=== PATIENT | female | born 1980 | race Caucasian/White ===

== ENCOUNTER → 2017-03-03 | Outpatient (CLI) | payer OTHER ==
[~2017-03-03] MED LIST: ALBU17IN INH; BELVIQ PO; BIOTIN PO; BREO1INH INH; BRIN10TA PO; CAMRTAB PO; CLAR1TAB2 PO; MAGN250T7 PO; MAXALT PO; OMEG100011 PO; OXYC1TAB23 PO; SING10TA32 PO; SYNT25TA PO; TOPA25TA PO; ULTR37.539 PO; VALT500T PO; WELL150T PO; XANA0.25 PO; ZONI100C2 PO; ZONI25CA2 PO
[2017-03-03 08:25] LABS: BASO % 0.7 % (0.0-1.0); EOS # 0.1 10^3/uL (0.0-0.50); LYMPH # 2.1 10^3/uL (1.5-4.5); LYMPH % 51.1 % (24.0-44.0); MEAN CORPUSCULAR HGB CONC 33.3 g/dl (32.0-36.5); MONO # 0.5 10^3/uL (0.0-0.8); MONO % 12.2 % (0.0-5.0); NEUTROPHILS # 1.4 10^3/uL (1.8-7.7); PLATELET COUNT, AUTOMATED 309 10^3/uL (150-450); RED CELL DISTRIBUTION WIDTH 12.4 % (11.5-14.5)
[2017-03-03 08:41] LABS: ADD MANUAL DIFFER NO; DIFF SLIDE NUMBER 118
[2017-03-03 08:53] LABS: ALBUMIN 3.6 GM/DL (3.2-5.2); ALKALINE PHOSPHATASE 68 U/L (45-117); ALT/SGPT 50 U/L (12-78); ANION GAP 10 MEQ/L (8-16); AST/SGOT 26 U/L (15-37); BILIRUBIN,TOTAL 0.5 MG/DL (0.2-1.0); BLOOD UREA NITROGEN 7 MG/DL (7-18); CARBON DIOXIDE LEVEL 27 MEQ/L (21-32); CHLORIDE LEVEL 104 MEQ/L (98-107); CREATININE FOR GFR 0.64 MG/DL (0.55-1.02); FERRITIN 161 NG/ML (8-252); GLOMERULAR FILTRATION RATE > 60.0 (>60); GLUCOSE, FASTING 76 MG/DL (70-105); MAGNESIUM LEVEL 1.9 MG/DL (1.8-2.4); PERCENT SATURATION 24.1 % (13.2-45.0); PHOSPHORUS LEVEL 3.9 MG/DL (2.5-4.9); POTASSIUM SERUM 3.8 MEQ/L (3.5-5.1); SODIUM LEVEL 141 MEQ/L (136-145); TOTAL IRON BINDING CAPACITY 224 UG/DL (250-450); TOTAL PROTEIN 6.6 GM/DL (6.4-8.2)
[2017-03-03 09:27] LABS: VITAMIN B12 LEVEL 1616 PG/ML (247-911)
[2017-03-05 12:24] LABS: PRETREATED FOLATE FOR RBCFOL 16.1 NG/ML
== END ==
LOC: M LAB 07:11
PROVIDERS: ATTEND Surgery
DX: K91.2 Postsurgical malabsorption, not elsewhere classified (principal); Z98.84 Bariatric surgery status

== ENCOUNTER → 2017-05-26 | Outpatient (CLI) | payer OTHER ==
[2017-05-26 08:52] LABS: BASO % 0.6 % (0.0-1.0); EOS # 0.1 10^3/uL (0.0-0.50); EOS % 1.5 % (0.0-3.0); IMMATURE GRANULOCYTE % 0.2 % (0-0); LYMPH # 2.7 10^3/uL (1.5-4.5); LYMPH % 51.2 % (24.0-44.0); MEAN CORPUSCULAR HEMOGLOBIN 27.7 pg (27.0-33.0); MEAN CORPUSCULAR HGB CONC 32.8 g/dl (32.0-36.5); MEAN CORPUSCULAR VOLUME 84.3 fl (80.0-96.0); MONO # 0.4 10^3/uL (0.0-0.8); MONO % 8.1 % (0.0-5.0); NEUTROPHILS % 38.4 % (36.0-66.0); PLATELET COUNT, AUTOMATED 242 10^3/uL (150-450); RED CELL DISTRIBUTION WIDTH 12.3 % (11.5-14.5); WHITE BLOOD COUNT 5.2 10^3/uL (4.0-10.0)
[2017-05-26 09:17] LABS: ALBUMIN 3.6 GM/DL (3.2-5.2); ALBUMIN/GLOBULIN RATIO 1.29 (1.00-1.93); ALKALINE PHOSPHATASE 58 U/L (45-117); ALT/SGPT 16 U/L (12-78); ANION GAP 5 MEQ/L (8-16); AST/SGOT 11 U/L (7-37); BILIRUBIN,TOTAL 0.5 MG/DL (0.2-1.0); BLOOD UREA NITROGEN 11 MG/DL (7-18); CALCIUM LEVEL 8.6 MG/DL (8.5-10.1); CARBON DIOXIDE LEVEL 29 MEQ/L (21-32); CHLORIDE LEVEL 107 MEQ/L (98-107); CREATININE FOR GFR 0.56 MG/DL (0.55-1.02); FERRITIN 122 NG/ML (8-252); GLOMERULAR FILTRATION RATE > 60.0 (>60); GLUCOSE, FASTING 89 MG/DL (70-105); MAGNESIUM LEVEL 2.1 MG/DL (1.8-2.4); PHOSPHORUS LEVEL 3.8 MG/DL (2.5-4.9); POTASSIUM SERUM 4.2 MEQ/L (3.5-5.1); SODIUM LEVEL 141 MEQ/L (136-145); TOTAL PROTEIN 6.4 GM/DL (6.4-8.2)
[2017-05-26 09:53] LABS: VITAMIN B12 LEVEL 366 PG/ML (247-911)
[2017-05-26 10:01] LABS: ESTIMATED AVERAGE GLUCOSE 100 MG/DL (60-110)
[2017-05-28 11:02] LABS: PRETREATED FOLATE FOR RBCFOL 16.1 NG/ML
== END ==
LOC: M LAB 08:01
DX: K91.2 Postsurgical malabsorption, not elsewhere classified (principal)
CPT/HCPCS: 83540

== ENCOUNTER → 2017-11-22 | Outpatient (CLI) | payer OTHER ==
[2017-11-22 16:46] LABS: BASO # 0.1 10^3/uL (0.0-0.2); BASO % 0.6 % (0.0-1.0); EOS # 0.2 10^3/uL (0.0-0.50); EOS % 2.8 % (0.0-3.0); HEMATOCRIT 39.3 % (36.0-47.0); HEMOGLOBIN 13.3 g/dl (12.0-15.5); IMMATURE GRANULOCYTE % 0.3 % (0-3.0); LYMPH # 3.5 10^3/uL (1.5-4.5); LYMPH % 43.8 % (24.0-44.0); MEAN CORPUSCULAR HEMOGLOBIN 28.7 pg (27.0-33.0); MEAN CORPUSCULAR HGB CONC 33.8 g/dl (32.0-36.5); MEAN CORPUSCULAR VOLUME 84.9 fl (80.0-96.0); MONO # 0.7 10^3/uL (0.0-0.8); MONO % 8.3 % (0.0-5.0); NEUTROPHILS # 3.5 10^3/uL (1.8-7.7); NEUTROPHILS % 44.2 % (36.0-66.0); PLATELET COUNT, AUTOMATED 242 10^3/uL (150-450); RED BLOOD COUNT 4.63 10^6/uL (4.00-5.40); RED CELL DISTRIBUTION WIDTH 12.1 % (11.5-14.5); WHITE BLOOD COUNT 7.9 10^3/uL (4.0-10.0)
[2017-11-22 16:56] LABS: ESTIMATED AVERAGE GLUCOSE 105 MG/DL (60-110); HEMOGLOBIN A1c 5.3 %
[2017-11-22 17:10] LABS: TOTAL 25(OH) VITAMIN D 27.3 NG/ML (30.0-100.0); VITAMIN B12 LEVEL 699 PG/ML (247-911)
[2017-11-22 17:12] LABS: ALBUMIN 3.7 GM/DL (3.2-5.2); ALBUMIN/GLOBULIN RATIO 1.19 (1.00-1.93); ALKALINE PHOSPHATASE 71 U/L (45-117); ALT/SGPT 20 U/L (12-78); ANION GAP 7 MEQ/L (8-16); AST/SGOT 11 U/L (7-37); BILIRUBIN,TOTAL 0.3 MG/DL (0.2-1.0); BLOOD UREA NITROGEN 17 MG/DL (7-18); CALCIUM LEVEL 8.9 MG/DL (8.5-10.1); CARBON DIOXIDE LEVEL 28 MEQ/L (21-32); CHLORIDE LEVEL 108 MEQ/L (98-107); CREATININE FOR GFR 0.59 MG/DL (0.55-1.30); FERRITIN 100 NG/ML (8-252); GLOMERULAR FILTRATION RATE > 60.0 (>60); GLUCOSE, FASTING 77 MG/DL (70-100); IRON (FE) 76 UG/DL (50-170); MAGNESIUM LEVEL 1.9 MG/DL (1.8-2.4); PERCENT SATURATION 29.2 % (13.2-45.0); PHOSPHORUS LEVEL 3.5 MG/DL (2.5-4.9); POTASSIUM SERUM 4.4 MEQ/L (3.5-5.1); SODIUM LEVEL 143 MEQ/L (136-145); TOTAL IRON BINDING CAPACITY 260 UG/DL (250-450); TOTAL PROTEIN 6.8 GM/DL (6.4-8.2)
[2017-11-22 19:50] LABS: HEMATOCRIT 39.3 % (36.0-47.0)
[2017-11-23 10:15] LABS: PRETREATED FOLATE FOR RBCFOL 15.5 NG/ML; RBC FOLATE 828.2 NG/ML (280-791)
== END ==
LOC: M LAB 16:00
DX: E55.9 Vitamin D deficiency, unspecified (principal)
CPT/HCPCS: 83550

== ENCOUNTER → 2017-12-23 | Outpatient (CLI) | payer OTHER ==
[2017-12-23 13:41] LABS: BASO # 0.1 10^3/uL (0.0-0.2); BASO % 0.7 % (0.0-1.0); EOS # 0.2 10^3/uL (0.0-0.50); EOS % 2.3 % (0.0-3.0); HEMATOCRIT 44.9 % (36.0-47.0); HEMOGLOBIN 14.8 g/dl (12.0-15.5); IMMATURE GRANULOCYTE % 0.1 % (0-3.0); MEAN CORPUSCULAR HEMOGLOBIN 28.1 pg (27.0-33.0); MEAN CORPUSCULAR VOLUME 85.4 fl (80.0-96.0); MONO # 0.4 10^3/uL (0.0-0.8); MONO % 5.5 % (0.0-5.0); NEUTROPHILS # 3.3 10^3/uL (1.8-7.7); NEUTROPHILS % 47.4 % (36.0-66.0); PLATELET COUNT, AUTOMATED 244 10^3/uL (150-450); RED BLOOD COUNT 5.26 10^6/uL (4.00-5.40); RED CELL DISTRIBUTION WIDTH 12.4 % (11.5-14.5); WHITE BLOOD COUNT 6.9 10^3/uL (4.0-10.0)
[2017-12-23 14:40] LABS: ALBUMIN/GLOBULIN RATIO 1.14 (1.00-1.93); ALKALINE PHOSPHATASE 70 U/L (45-117); ALT/SGPT 22 U/L (12-78); ANION GAP 6 MEQ/L (8-16); AST/SGOT 12 U/L (7-37); BILIRUBIN,TOTAL 0.6 MG/DL (0.2-1.0); BLOOD UREA NITROGEN 17 MG/DL (7-18); CALCIUM LEVEL 9.4 MG/DL (8.5-10.1); CARBON DIOXIDE LEVEL 31 MEQ/L (21-32); CHLORIDE LEVEL 105 MEQ/L (98-107); CREATININE FOR GFR 0.81 MG/DL (0.55-1.30); GLOMERULAR FILTRATION RATE > 60.0 (>60); GLUCOSE, FASTING 78 MG/DL (70-100); POTASSIUM SERUM 4.4 MEQ/L (3.5-5.1); SODIUM LEVEL 142 MEQ/L (136-145); TOTAL PROTEIN 7.5 GM/DL (6.4-8.2)
[2017-12-23 14:41] LABS: TESTOSTERONE 14 NG/DL (14-76)
[2017-12-24 09:39] LABS: DEHYDROEPIANDROSTERONE SULFATE 114.6 ug/dL (57.3-279.2)
== END ==
LOC: M LAB 13:00
DX: L00-L99 Diseases of the skin and subcutaneous tissue (principal)
CPT/HCPCS: 84403

== ENCOUNTER → 2018-09-20 | Outpatient (CLI) | payer OTHER ==
--- NOTE | 2018-09-20 17:28 | REP ---
REASON FOR EXAM: Abdominal pain. COMPARISON: None. FINDINGS: KUB shows the intestinal gas pattern to be nonspecific. The organ silhouettes insofar as delineated are unremarkable. There is no evidence of free intraperitoneal air. IMPRESSION: Nonspecific. Electronically Signed by Gurwinder King DO 09/21/2018 11:55 A
== END ==
LOC: M RAD 14:39
PROVIDERS: ATTEND Physician Assistant
DX: R10.9 Unspecified abdominal pain (principal); R14.0 Abdominal distension (gaseous)

== ENCOUNTER → 2018-11-30 | Outpatient (CLI) | payer OTHER ==
[2018-11-30 16:21] LABS: BASO # 0.1 10^3/uL (0.0-0.2); BASO % 0.7 % (0.0-1.0); EOS # 0.3 10^3/uL (0.0-0.50); EOS % 4.7 % (0.0-3.0); HEMATOCRIT 39.7 % (36.0-47.0); HEMOGLOBIN 13.1 g/dl (12.0-15.5); LYMPH % 41.2 % (24.0-44.0); MEAN CORPUSCULAR HEMOGLOBIN 28.4 pg (27.0-33.0); MEAN CORPUSCULAR VOLUME 86.1 fl (80.0-96.0); MONO # 0.5 10^3/uL (0.0-0.8); MONO % 6.7 % (0.0-5.0); NEUTROPHILS # 3.4 10^3/uL (1.8-7.7); NEUTROPHILS % 46.4 % (36.0-66.0); PLATELET COUNT, AUTOMATED 233 10^3/uL (150-450); RED BLOOD COUNT 4.61 10^6/uL (4.00-5.40); WHITE BLOOD COUNT 7.3 10^3/uL (4.0-10.0)
[2018-11-30 16:26] LABS: HEMATOCRIT 39.7 % (36.0-47.0)
[2018-11-30 16:41] LABS: HEMOGLOBIN A1c 5.3 %
[2018-11-30 16:47] LABS: ALBUMIN 3.9 GM/DL (3.2-5.2); ALT/SGPT 22 U/L (12-78); BILIRUBIN,TOTAL 0.5 MG/DL (0.2-1.0); BLOOD UREA NITROGEN 14 MG/DL (7-18); CALCIUM LEVEL 9.4 MG/DL (8.5-10.1); CARBON DIOXIDE LEVEL 30 MEQ/L (21-32); CHLORIDE LEVEL 103 MEQ/L (98-107); CREATININE FOR GFR 0.76 MG/DL (0.55-1.30); FERRITIN 157 NG/ML (8-252); GLOMERULAR FILTRATION RATE > 60.0 (>60); GLUCOSE, FASTING 89 MG/DL (70-100); IRON (FE) 121 UG/DL (50-170); PERCENT SATURATION 44.8 % (13.2-45.0); PHOSPHORUS LEVEL 3.6 MG/DL (2.5-4.9); POTASSIUM SERUM 4.1 MEQ/L (3.5-5.1); SODIUM LEVEL 140 MEQ/L (136-145); TOTAL IRON BINDING CAPACITY 270 UG/DL (250-450); TOTAL PROTEIN 6.9 GM/DL (6.4-8.2)
[2018-11-30 20:05] LABS: VITAMIN B12 LEVEL 1003 PG/ML (247-911)
== END ==
LOC: M LAB 15:24
PROVIDERS: ATTEND Physician Assistant
DX: K91.2 Postsurgical malabsorption, not elsewhere classified (principal); Z98.84 Bariatric surgery status; E55.9 Vitamin D deficiency, unspecified

== ENCOUNTER → 2018-11-30 | Outpatient (CLI) | payer OTHER ==
[2018-11-30 08:46] LABS: BASO # 0.1 10^3/uL (0.0-0.2); BASO % 0.9 % (0.0-1.0); EOS # 0.5 10^3/uL (0.0-0.50); EOS % 8.2 % (0.0-3.0); HEMATOCRIT 41.4 % (36.0-47.0); HEMOGLOBIN 13.6 g/dl (12.0-15.5); LYMPH # 2.7 10^3/uL (1.5-4.5); LYMPH % 47.6 % (24.0-44.0); MEAN CORPUSCULAR HEMOGLOBIN 29.4 pg (27.0-33.0); MEAN CORPUSCULAR HGB CONC 32.9 g/dl (32.0-36.5); MEAN CORPUSCULAR VOLUME 89.4 fl (80.0-96.0); MONO # 0.4 10^3/uL (0.0-0.8); MONO % 6.6 % (0.0-5.0); NEUTROPHILS % 36.3 % (36.0-66.0); PLATELET COUNT, AUTOMATED 225 10^3/uL (150-450); RED BLOOD COUNT 4.63 10^6/uL (4.00-5.40); WHITE BLOOD COUNT 5.6 10^3/uL (4.0-10.0)
[2018-11-30 09:03] LABS: ALBUMIN 3.6 GM/DL (3.2-5.2); ALT/SGPT 21 U/L (12-78); BILIRUBIN,DIRECT 0.2 MG/DL (0.0-0.2); BILIRUBIN,TOTAL 0.7 MG/DL (0.2-1.0); IRON (FE) 146 UG/DL (50-170); PERCENT SATURATION 55.3 % (13.2-45.0); TOTAL IRON BINDING CAPACITY 264 UG/DL (250-450); TOTAL PROTEIN 6.8 GM/DL (6.4-8.2)
[2018-11-30 09:53] LABS: VITAMIN B12 LEVEL 851 PG/ML
[2018-11-30 11:04] LABS: FOLATE > 24.0 NG/ML
[2018-12-02 15:45] LABS: TISSUE TRANSGLUTAMINASE IgA <2 U/mL (0-3); UNITSIGA FOR GLIADIN IGA 4 units (0-19); UNITSIGG FOR GLIADIN IGG 2 units (0-19)
== END ==
LOC: M LAB 07:48
PROVIDERS: ATTEND Internal Medicine Gastroenterology
DX: R10.10 Upper abdominal pain, unspecified (principal)

== ENCOUNTER → 2018-12-06 | Outpatient (CLI) | payer OTHER ==
--- NOTE | 2018-12-06 10:03 | REP ---
Clinical: Abdominal pain with nausea. Technique: Real time bowman scale ultrasound examination using curved array transducer. Findings: Liver, spleen, and pancreas are normal in contour, size, echogenicity without focal hepatic, pancreatic, or splenic lesion identified. Splenic index equals 460. Liver measures 16.5 cm in craniocaudal length. The gallbladder demonstrates multiple mobile gallstones without wall thickening or pericholecystic fluid to suggest acute cholecystitis. No intrahepatic biliary ductal dilatation is appreciated. The common bile duct is upper limits of normal at 6.8 mm diameter. The bilateral kidneys are normal in reniform shape and appearance without hydronephrosis. Right kidney measures 11.7 x 6.2 x 5.6 cm. Left kidney measures 10.5 x 6.3 x 5.4 cm. Abdominal aorta appears normal. No ascites. Impression: 1. Cholelithiasis without sonographic evidence for acute cholecystitis. Electronically Signed by Nash Zee MD 12/06/2018 09:56 A
== END ==
LOC: M RAD 06:38
PROVIDERS: ATTEND Internal Medicine Gastroenterology
DX: R10.10 Upper abdominal pain, unspecified (principal)

== ENCOUNTER 2018-12-30 09:01 | Day surgery (SDC) | payer OTHER ==
[~2018-12-30] VITALS: Ht 154.9 cm; Wt 71.2 kg
[~2018-12-30 09:01] MED LIST changes: +ALIG4CAP PO; +D32000CA PO; +HAIR1CHW PO; +MULTCAP PO; +OMEP1CAP73 PO; +SPIR50TA4 PO; +VENTAER INH; +VITA500T41 PO; +ZONI100C17 PO; -ZONI100C2 PO; +ZONI25CA13 PO; -ZONI25CA2 PO
[2018-12-30] MEDS ORDERED: NS 1,000 ML IV ONE (09:30)
[2018-12-30] MEDS ORDERED: LIDOCAINE 2% INJ 100 MG/5 ML SDV (FOR ANES.) As Ordered ONE ×2 (10:16→11:10)
[2018-12-30] MEDS ORDERED: propofoL 200 MG/20 ML VIAL As Ordered ONE ×2 (10:16→10:17)
--- NOTE | 2018-12-30 11:51 | ROOR ---
Patient Name: Lauryn Cummins Procedure Date: 12/30/2018 10:53 AM Date of : 1980 Age: 38 Room: [facility] Gender: Female Note Status: Finalized Procedure: Upper GI endoscopy Indications: Dyspepsia Providers: Derek Kelly MD Referring MD: MELANY DENENY NP Requesting Provider: Medicines: Monitored Anesthesia Care Complications: No immediate complications. Procedure: Pre-Anesthesia Assessment: - Prior to the procedure, a History and Physical was performed, and patient medications and allergies were reviewed. The patient is competent. The risks and benefits of the procedure and the sedation options and risks were discussed with the patient. All questions were answered and informed consent was obtained. Patient identification and proposed procedure were verified by the physician, the nurse and the anesthesiologist in the procedure room. Mental Status Examination: alert and oriented. Airway Examination: normal oropharyngeal airway and neck mobility. Respiratory Examination: clear to auscultation. CV Examination: normal. Prophylactic Antibiotics: The patient does not require prophylactic antibiotics. Prior Anticoagulants: The patient has taken no previous anticoagulant or antiplatelet agents. ASA Grade Assessment: II - A patient with mild systemic disease. After reviewing the risks and benefits, the patient was deemed in satisfactory condition to undergo the procedure. The anesthesia plan was to use monitored anesthesia care (MAC). Immediately prior to administration of medications, the patient was re-assessed for adequacy to receive sedatives. The heart rate, respiratory rate, oxygen saturations, blood pressure, adequacy of pulmonary ventilation, and response to care were monitored throughout the procedure. The physical status of the patient was re-assessed after the procedure. The Endoscope was introduced through the mouth, and advanced to the second part of duodenum. The upper GI endoscopy was accomplished without difficulty. The patient tolerated the procedure well. Findings: The Z-line was regular and was found 36 cm from the incisors. Mucosal changes including feline appearance, longitudinal furrows and white plaques were found in the entire esophagus. Biopsies were obtained from the proximal and distal esophagus with cold forceps for histology of suspected eosinophilic esophagitis. Verification of patient identification for the specimen was done by the physician and nurse using the patient's name, date and medical record number. Estimated blood loss was minimal. Evidence of a sleeve gastrectomy was found in the gastric fundus, in the gastric body and in the gastric antrum. This was characterized by healthy appearing mucosa. Scattered mild inflammation characterized by congestion (edema), erythema and granularity was found in the gastric antrum. Biopsies were taken with a cold forceps for Helicobacter pylori testing. The duodenal bulb and second portion of the duodenum were normal. Biopsies for histology were taken with a cold forceps for evaluation of celiac disease. Impression: - Z-line regular, 36 cm from the incisors. - Esophageal mucosal changes suspicious for eosinophilic esophagitis. Biopsied. - A sleeve gastrectomy was found, characterized by healthy appearing mucosa. - Gastritis. Biopsied. - Normal duodenal bulb and second portion of the duodenum. Biopsied. Recommendation: - Patient has a contact number available for emergencies. The signs and symptoms of potential delayed complications were discussed with the patient. Return to normal activities tomorrow. Written discharge instructions were provided to the patient. - High fiber diet. - Continue present medications. - Await pathology results. - Telephone GI clinic for pathology results in 2 weeks. - Return to primary care physician. Derek Kelly MD Derke Kelly MD 12/30/2018 11:51:03 AM Electronically signed by Derek Kelly MD Number of Addenda: 0 Note Initiated On: 12/30/2018 10:53 AM Estimated Blood Loss: Estimated blood loss was minimal.
--- NOTE | 2018-12-30 11:55 | ROOR ---
Patient Name: Lauryn Cummins Procedure Date: 12/30/2018 10:54 AM Date of : 1980 Age: 38 Room: [facility] Gender: Female Note Status: Finalized Procedure: Colonoscopy Indications: Change in bowel habits, Constipation Providers: Derek Kelly MD Referring MD: MELANY DENNEY NP Requesting Provider: Medicines: Monitored Anesthesia Care Complications: No immediate complications. Procedure: Pre-Anesthesia Assessment: - Prior to the procedure, a History and Physical was performed, and patient medications and allergies were reviewed. The patient is competent. The risks and benefits of the procedure and the sedation options and risks were discussed with the patient. All questions were answered and informed consent was obtained. Patient identification and proposed procedure were verified by the physician, the nurse and the anesthesiologist in the procedure room. Mental Status Examination: alert and oriented. Airway Examination: normal oropharyngeal airway and neck mobility. Respiratory Examination: clear to auscultation. CV Examination: normal. Prophylactic Antibiotics: The patient does not require prophylactic antibiotics. Prior Anticoagulants: The patient has taken no previous anticoagulant or antiplatelet agents. ASA Grade Assessment: II - A patient with mild systemic disease. After reviewing the risks and benefits, the patient was deemed in satisfactory condition to undergo the procedure. The anesthesia plan was to use monitored anesthesia care (MAC). Immediately prior to administration of medications, the patient was re-assessed for adequacy to receive sedatives. The heart rate, respiratory rate, oxygen saturations, blood pressure, adequacy of pulmonary ventilation, and response to care were monitored throughout the procedure. The physical status of the patient was re-assessed after the procedure. The Colonoscope was introduced through the anus and advanced to the terminal ileum, with identification of the appendiceal orifice and IC valve. The colonoscopy was performed without difficulty. The patient tolerated the procedure well. The quality of the bowel preparation was good. The terminal ileum, ileocecal valve, appendiceal orifice, and rectum were photographed. Scope insertion time was 3 minutes. Scope withdrawal time was 11 minutes. The total duration of the procedure was 14 minutes. Findings: The perianal and digital rectal examinations were normal. The terminal ileum appeared normal. A 4 mm polyp was found in the transverse colon. The polyp was sessile. The polyp was removed with a cold biopsy forceps. Resection and retrieval were complete. Verification of patient identification for the specimen was done by the physician and nurse using the patient's name, date and medical record number. Estimated blood loss was minimal. Three sessile polyps were found in the descending colon. The polyps were 5 to 8 mm in size. These polyps were removed with a cold biopsy forceps. Resection and retrieval were complete. Multiple small and large-mouthed diverticula were found in the sigmoid colon and descending colon. There was no evidence of diverticular bleeding. Non-bleeding external and internal hemorrhoids were found during retroflexion. The hemorrhoids were small. Impression: - The examined portion of the ileum was normal. - One 4 mm polyp in the transverse colon, removed with a cold biopsy forceps. Resected and retrieved. - Three 5 to 8 mm polyps in the descending colon, removed with a cold biopsy forceps. Resected and retrieved. - Moderate diverticulosis in the sigmoid colon and in the descending colon. There was no evidence of diverticular bleeding. - Non-bleeding external and internal hemorrhoids. Recommendation: - Patient has a contact number available for emergencies. The signs and symptoms of potential delayed complications were discussed with the patient. Return to normal activities tomorrow. Written discharge instructions were provided to the patient. - High fiber diet. - Continue present medications. - Await pathology results. - Repeat colonoscopy in 5-10 years for surveillance based on pathology results. - Telephone GI clinic for pathology results in 2 weeks. - Return to primary care physician. Derek Kelly MD Derek Kelly MD 12/30/2018 11:54:41 AM Electronically signed by Derek Kelly MD Number of Addenda: 0 Note Initiated On: 12/30/2018 10:54 AM Estimated Blood Loss: Estimated blood loss was minimal.
[2018-12-30 12:00] VITALS: BP 109/66
[2019-02-16] MEDS ORDERED: PROT1TAB2 PO (13:42)
[2019-02-16] MEDS ORDERED: DOCU100C16 PO (13:42)
== END 2018-12-30 12:10 | disposition home or self-care (01) ==
LOC: M OPP 09:01
PROVIDERS: ATTEND Internal Medicine Gastroenterology
DX: D12.3 Benign neoplasm of transverse colon (principal); D12.4 Benign neoplasm of descending colon; K57.30 Diverticulosis of large intestine without perforation or abscess without bleeding; K64.8 Other hemorrhoids; K29.70 Gastritis, unspecified, without bleeding; K22.8 Other specified diseases of esophagus; R19.4 Change in bowel habit; K59.00 Constipation, unspecified; R10.13 Epigastric pain; Z98.84 Bariatric surgery status

== ENCOUNTER → 2019-01-18 | Outpatient (CLI) | payer OTHER ==
[~2019-01-18] MED LIST changes: +GASTROGRAFIN SOLUTION 30ML (Q9963) As Ordered ONE; +ISOVUE-370 76% 100ML VIAL (Q9967) As Ordered ONE; -OMEP1CAP73 PO; +OMEP20CA4 PO; -ZONI100C17 PO; +ZONI100C2 PO; -ZONI25CA13 PO; +ZONI25CA2 PO
--- NOTE | 2019-01-18 19:18 | REP ---
HISTORY: Left lower quadrant tenderness. COMPARISON: None. CONTRAST: 100 mL [id number] The lung bases are clear. In the posterior segment of the right lobe of the liver, there is a heterogeneously enhancing 1.6 cm sized hepatic lesion. The gallbladder, spleen, pancreas, adrenal glands and kidneys are within normal limits. The abdominal aorta and paraaortic regions are within normal limits. The bowel loops and their mesenteries are within normal limits. There is no evidence of free fluid or free air. CT PELVIS: In the superior left anterior hemipelvis there is a 2.6 cm sized low density structure, which has an additional wall enhancing smaller 1.5 cm sized low density structure. There is no free pelvic fluid or air. Bone window technique throughout the examination shows the osseous structures to be within normal limits. IMPRESSION: 1. Abnormal enhancing hepatic lesion as described above of uncertain etiology. Pre- and post gadolinium enhanced MRI is recommended for further evaluation. 2. In the left lower quadrant there is a low density structure with an additional smaller ring enhancing structure as described above. This has the appearance of a left ovary with a decompressing follicle. I have been given information that the patient is status post hysterectomy, however, I have been given no information as to whether or not the patient's is status post oophorectomy. If the patient is status post oophorectomy, then the finding represents something other than the finding involving an ovary. This needs to be correlated clinically with appropriate followup. 3. Other findings as described above. Electronically Signed by Gurwinder King DO 01/19/2019 10:53 A
== END ==
LOC: M RAD 14:02
PROVIDERS: ATTEND Surgery
DX: R10.814 Left lower quadrant abdominal tenderness (principal)
CPT/HCPCS: 74177; Q9963; Q9967

== ENCOUNTER → 2019-01-18 | Outpatient (CLI) | payer OTHER ==
[~2019-01-18] MED LIST changes: -GASTROGRAFIN SOLUTION 30ML (Q9963) As Ordered ONE; -ISOVUE-370 76% 100ML VIAL (Q9967) As Ordered ONE
--- NOTE | 2019-01-19 08:39 | REP ---
BILATERAL SCREENING DIGITAL MAMMOGRAM WITH 3D TOMOSYNTHESIS: There are no palpable abnormalities or other breast complaints. The the patient states she had a clinical breast examination Sep, 2018. The Tyrer Cuzick Score is: 16.1% . There are no comparisons, the study is a baseline study. The breasts are heterogeneously dense, which could obscure small masses. There is no dominant mass, micro calcific cluster or architectural distortion that would indicate malignancy. There are no additional findings on 3D tomosynthesiss. Impression: BIRADS/ACR category 1 mammogram. Negative. Recommendation: Routine annual screening mammography. Because of the increased breast density, annual adjunctive breast MRI in addition to screening mammography is recommended. These can be performed at alternating six month intervals. This mammogram was interpreted with the aid of a FDA approved computer-aided detection system. A. Negative mammogram reports should not delay biopsy if a dominant or clinically suspicious mass is present. B. Not all breast cancers are identified by mammography or tomosynthesis. C. Adenosis and dense breasts may obscure an underlying neoplasm. Patient letter M1 dense breasts. Electronically Signed by Mark Cerna MD 01/19/2019 08:30 A
== END ==
LOC: M RAD 13:55
PROVIDERS: ATTEND Plastic Surgery Surgery of the Hand
DX: N64.81 Ptosis of breast (principal)

== ENCOUNTER → 2019-02-08 | Outpatient (CLI) | payer OTHER ==
[~2019-02-08] MED LIST changes: +DOCU100C16 PO; +PROT1TAB2 PO
[2019-02-08 13:19] LABS: ALBUMIN 3.8 GM/DL (3.2-5.2); ALT/SGPT 25 U/L (12-78); BILIRUBIN,DIRECT 0.2 MG/DL (0.0-0.2); BILIRUBIN,TOTAL 0.5 MG/DL (0.2-1.0); TOTAL PROTEIN 6.9 GM/DL (6.4-8.2)
[2019-02-08 13:24] LABS: HEPATITIS B SURFACE ANTIBODY NEGATIVE (POSITIVE)
[2019-02-08 13:34] LABS: HEPATITIS B SURFACE ANTIGEN NEGATIVE (NEGATIVE)
== END ==
LOC: M LAB 11:50
PROVIDERS: ATTEND Internal Medicine Gastroenterology
DX: R93.3 Abnormal findings on diagnostic imaging of other parts of digestive tract (principal)

== ENCOUNTER 2019-02-28 07:53 | Observation (INO) | payer OTHER ==
[2019-02-28] VITALS (8 sets, daily range): BP systolic 84–110; BP diastolic 50–72
[~2019-02-28] VITALS: Ht 154.9 cm; Wt 73.9 kg
[~2019-02-28 07:53] MED LIST changes: +LR 1,000 ML IV ONE; +OMEP1CAP73 PO; -OMEP20CA4 PO; +ZONI100C17 PO; -ZONI100C2 PO; +ZONI25CA13 PO; -ZONI25CA2 PO; +ceFAZolin SOD 1 GM in D5W MINI-BAG PLUS 50 ML IV ONE
[2019-02-28] MEDS ORDERED: propofoL 200 MG/20 ML VIAL As Ordered ONE (08:08)
[2019-02-28] MEDS ORDERED: ROCURONIUM BROMIDE 50 MG/5 ML VIAL As Ordered ONE ×2 (08:08→10:04)
[2019-02-28] MEDS ORDERED: ONDANSETRON 4MG/2ML VIAL (J2405) As Ordered ONE (08:08)
[2019-02-28] MEDS ORDERED: LIDOCAINE 2% INJ 100 MG/5 ML SDV (FOR ANES.) As Ordered ONE (08:08)
[2019-02-28] MEDS ORDERED: dexameTHASONE 4 MG/ML 1ML VIAL (J1100) As Ordered ONE (08:08)
[2019-02-28] MEDS ORDERED: MIDAZOLAM INJ 2 MG/2 ML VIAL (J2250) As Ordered ONE (08:12)
[2019-02-28] MEDS ORDERED: fentaNYL 100 MCG/2 ML INJECTION (J3010) As Ordered ONE (08:12)
[2019-02-28] MEDS ORDERED: HYDROmorphone HCL 2 MG/ML 1ML VIAL (J1170) As Ordered ONE (08:13)
[2019-02-28] MEDS ORDERED: SCOPOLAMINE 1MG TRANSDERMAL PATCH TOP ONE (08:45)
[2019-02-28] MEDS ORDERED: LACRILUBE (AKWA TEARS) OPHTH OINT 3.5 GM As Ordered ONE (08:51)
[2019-02-28] MEDS ORDERED: SEVOFLURANE INHAL SOLN 250 ML BTL As Ordered ONE (08:54)
[2019-02-28] MEDS ORDERED: BACITRACIN PWD 50,000 UNITS VIAL As Ordered ONE (09:06)
[2019-02-28] MEDS ORDERED: BUPIVACAINE LIPOSOME/PF 1.3% 20ML VIAL (13.3MG/ML)(EXPAREL)(C9290 PER1MG) As Ordered ONE (09:06)
[2019-02-28] MEDS ORDERED: EPINEPHrine INJ 1 MG/ML 1ML VIAL As Ordered ONE (09:07)
[2019-02-28] MEDS ORDERED: LIDOCAINE 1% MDV 20ML VIAL As Ordered ONE (09:07)
[2019-02-28] MEDS ORDERED: KETAMINE HCL 200 MG/20 ML VIAL As Ordered ONE ×2 (09:59→11:09)
[2019-02-28] MEDS ORDERED: SUGAMMADEX SODIUM 500 MG/5 ML VIAL (BRIDION) As Ordered ONE (10:01)
--- NOTE | 2019-02-28 12:58 | POST-OPPD ---
Postoperative Procedure Note Date Of Procedure: Feb 27, 2037 PREOPERATIVE DIAGNOSIS: Symptomatic macromastia, breast ptosis, breast asymmetry. POSTOPERATIVE DIAGNOSIS: same FINDINGS: Breast ptosis, left larger than left PROCEDURE: Bilateral mastopexy and small breast reduction for symmetry. SURGEON: Dr Melendrez ANESTHESIA: General SPECIMENS: Right breast 57g, Left breast 166g ESTIMATED BLOOD LOSS: 50cc REPLACED: none DRAINS: 10 mm JAYLEEN drains Left side COMPLICATIONS: none POSTOPERATIVE CONDITION: stable DEMARCO MELENDREZ DO Feb 28, 2019 12:58
[2019-02-28] MEDS ORDERED: LR 1,000 ML IV SCH (13:30)
[2019-02-28] MEDS ORDERED: ONDANSETRON 4MG/2ML VIAL (J2405) IV PRN (13:30)
[2019-02-28] MEDS ORDERED: fentaNYL 100 MCG/2 ML INJECTION (J3010) IV PRN (13:30)
[2019-02-28] MEDS ORDERED: MORPHINE 4 MG/ML 1ML VIAL/SYRINGE (J2270) IV PRN (14:00)
[2019-02-28] MEDS ORDERED: ONDANSETRON 4 MG TAB (S0181) PO PRN (15:00)
[2019-02-28] MEDS: PANTOPRAZOLE 40MG TAB (PROTONIX) PO SCH (15:02)
[2019-02-28] MEDS: PERCOCET 5MG/325MG TAB PO PRN ×3 (15:02→23:24)
[2019-02-28] MEDS: LR 1,000 ML IV SCH (15:03)
[2019-02-28] MEDS: ceFAZolin SOD 1 GM in D5W MINI-BAG PLUS 50 ML IV SCH (18:31)
--- NOTE | 2019-02-28 19:11 | RO ---
DATE OF PROCEDURE: 02/28/2019 PREPROCEDURE DIAGNOSIS: Symptomatic macromastia, breast ptosis and breast asymmetry. POSTPROCEDURE DIAGNOSIS: Symptomatic macromastia, breast ptosis and breast asymmetry. OPERATIVE PROCEDURE: Bilateral mastopexy and small breast reduction for symmetry. SURGEON: Yvette Bone DO ANESTHESIA: General. SPECIMENS: Right breast 57 grams and left breast is 166 grams breast tissue. ESTIMATED BLOOD LOSS: 50 mL. DRAINS: 10 mm Pancho-Perdomo drain on the left side. COMPLICATIONS: None. INDICATION FOR THE PROCEDURE: This is a 38-year-old female who was seen in our office status post loss of volume in both of her breasts. She had a gastric bypass, lost a significant amount of weight. She has ptosis in both breasts, also significant asymmetry; the left side is bigger than the right. Both findings are causing increased upper neck pain and patient is a candidate for mastopexy with a small reduction in order to adjust breast asymmetry as well. All the risks, benefits and alternatives discussed with the patient in detail and she is read to proceed. DESCRIPTION OF PROCEDURE: Today in preoperative holding area she was marked in upright position and then her measurements are from sternal notch to the left nipple areolar complex is 27 cm. On the right it is 26 cm. IMF level is 21 cm. We have marked out the keyhole pattern while she was standing upright and then patient was brought into the operating room, placed in supine position/ Preoperative antibiotics were given. Sequential stockings placed on the lower calves and general anesthesia was induced. We finished the markings in the horizontal position. Her nipple areolar complex was going to be 21 cm from her sternal notch. Like I mentioned, there was significant asymmetry between the left and the right breast. Nipple to the IMF on the right 9 cm and on the left is 12 cm. We started our procedure by outlining the nipple areolar complex at 45 mm in diameter and then the incision was carried out around the nipple areolar complex and then around the keyhole premarked incision. The skin was de-epithelialized in the superior portion of the pedicle and then we started raising the flap according to the central pedicle pattern. Minimal excision was done on the right side. After the flaps were created we were able to finish the de-epithelializing the central pedicle and then we were able to move freely without any tension the central pedicle superiorly into its new position. The new breast mound was created and was conformed with #0 Vicryl sutures and then we started closing out pillars along the midline with #3-0 Monocryl sutures. The vertical limb was at 8 cm. Excess tissue was measured inferiorly and lateral portion was resected. Medial tissue, was de-epithelialized and cutaneous flap was created, which wasused to augment medial fullness and it. We continued closing. No drain indicated on that site. The nipple areolar complex was sutured in place with interrupted #3-0 and #4-0 Monocryl sutures and #5-0 plain running stitch. Then we turned our attention to the left side. Nipple areolar complex was measured at 45 mm in diameter and then we started our incision using #10 blade. The superior portion of the keyhole incision was de-epithelialized using Garner scissors and then we continued raising the flap according to the central pedicle. This breast was larger, so we have excess of 3 cm tissue inferiorly, which was resected together. I dissected in the midline portion and then the pedicle was de-epithelialized using Garner scissors and then we were able to move the tissue superiorly to its new position without any tension. The new breast mound was recreated and #0 Vicryl sutures were used to conform it. The pillars were closed with interrupted #3-0 Monocryl sutures, the vertical limb was measured at 8 cm. Excess tissue was measured inferiorly and resected completely. Total 166 grams on the left side with all the resection. The horizontal incision was closed with interrupted #3-0 Monocryl sutures. 10 mm Pancho-Perdomo drain was placed through the lateral portion of that incision. Nipple areolar complex was sutured in layers with interrupted #3-0 and #4-0 Monocryl sutures and #5-0 plain running stitch. Prineo dressing was used for the dressings and Xeroform with padding on the nipple areolar complex. We used foam tape to conform the left breast laterally and also pink foam for compression on the lateral chest. Surgical bra was applied. The patient was extubated in the operating room without any difficulties and transferred to the recovery room in stable condition. RHETT
[2019-02-28] MEDS ORDERED: NS 500 ML IV ONE (19:15)
[2019-03-01 02:08] VITALS: BP 104/57
[2019-03-01] MEDS: ceFAZolin SOD 1 GM in D5W MINI-BAG PLUS 50 ML IV SCH (02:09)
[2019-03-01] MEDS: PERCOCET 5MG/325MG TAB PO PRN (06:15)
[2019-03-01] MEDS: LR 1,000 ML IV SCH (06:16)
[2019-03-01 06:36] VITALS: BP 105/60
[2019-03-01] MEDS: PANTOPRAZOLE 40MG TAB (PROTONIX) PO SCH (08:50)
[2019-03-01] MEDS ORDERED: SPIRONOLACTONE 50 MG TAB PO SCH (09:00)
--- NOTE | 2019-03-01 09:33 | IPNPDOC ---
Subjective General Date/Time Seen The patient was seen on 03/01/19 at 0800. Subject Chief Complaint/History The patient is a 38-year-old female admitted with a reason for visit of Ptosis Of Breasts. Patient s/p Bilateral mastopexy with small reduction for symmetry. Current Medications Current Medications Current Medications Medications (Trade) Dose Ordered Sig/Flora Route PRN Reason Start Time Stop Time Status Last Admin Dose Admin Cefazolin Sodium 1 gm/Dextrose 50 ml @ 100 mls/hr Q8H IV 02/28/19 18:00 03/01/19 02:29 DC 03/01/19 02:09 Fentanyl Citrate (Sublimaze) 25 mcg Q5MP PRN IV MODERATE PAIN (PS 4-7) 02/28/19 13:30 02/28/19 14:30 DC Lactated Ringer's 1,000 ml @ 75 mls/hr [id number] IV 02/28/19 14:00 03/01/19 08:48 DC 03/01/19 06:16 Lactated Ringer's 1,000 ml @ 100 mls/hr Q10H IV 02/28/19 13:30 02/28/19 14:30 DC Morphine Sulfate (Morphine Sulfate Inj) 4 mg Q4H PRN IV SEVERE PAIN (PS 8-10) 02/28/19 14:00 Ondansetron HCl (ZOFRAN INJection) 4 mg Q4HP PRN IV NAUSEA OR VOMITING 02/28/19 13:30 02/28/19 14:30 DC Ondansetron HCl (Zofran) 4 mg Q4HP PRN PO NAUSEA OR VOMITING 02/28/19 15:00 02/28/19 15:02 Oxycodone/ Acetaminophen (Percocet 5mg/ 325mg Tablet) 1 tab Q4H PRN PO MODERATE PAIN (PS 5-7) 02/28/19 14:00 03/01/19 06:15 Pantoprazole Sodium (Protonix) 40 mg DAILY PO 02/28/19 09:00 03/01/19 08:50 Spironolactone (Aldactone) 50 mg DAILY PO 03/01/19 09:00 Allergies Coded Allergies: codeine (Verified Adverse Reaction, Intermediate, chest pain and leg cramps, 02/16/19) Objective Physical Examination Examination GENERAL APPEARANCE:Patient seen, laying in bed, awake, alert, and oriented. Comfortable, in no acute distress. SKIN: Warm and moist. BREAST: Incisions intact, dry. NAC viable, warm. Breasts soft. Minimal ecchymosis, left side slightly more post op edema. JAYLEEN serosanguinous. LUNGS: Clear to auscultation bilaterally. No wheezing appreciated. HEART: No chest wall abnormalities. Regular rate and rhythm with no murmurs appreciated. Vital Signs Vital Signs Date Time Temp Pulse Resp B/P (MAP) Pulse Ox O2 Delivery O2 Flow Rate FiO2 03/01/19 06:59 16 03/01/19 06:36 98.3 68 105/60 (75) 100 I&Os I&O- Last 24 Hours up to 6 AM 03/01/19 06:00 Intake Total 3675 ml Output Total 1305 ml Balance 2370 ml Impression S/p bilateral mastopexy with small reduction for symmetry. Doing well. Pain controlled. Nausea controlled Stable for discharge Monitor drain at home Dressings changed All expected post op changes. Instructions given to patient F/up plastic surgery Wednesday. Plan / VTE VTE Prophylaxis Ordered?: Yes DEMARCO MELENDREZ DO Mar 01, 2019 09:33
[2019-03-01] MEDS ORDERED: OXYC1TAB23 PO (09:36)
== END 2019-03-01 10:20 | disposition home or self-care (01) ==
LOC: M SDC 07:53 → M MS5PR 14:05
PROVIDERS: ADMIT Plastic Surgery Surgery of the Hand; ATTEND Plastic Surgery Surgery of the Hand
DX: N64.81 Ptosis of breast (principal); K21.9 Gastro-esophageal reflux disease without esophagitis; J45.909 Unspecified asthma, uncomplicated; Z79.51 Long term (current) use of inhaled steroids; Z98.84 Bariatric surgery status; Z79.899 Other long term (current) drug therapy; F41.9 Anxiety disorder, unspecified; F32.9 Major depressive disorder, single episode, unspecified
CPT/HCPCS: 19316; 88305; C9290; J0690; J1100; J1170; J2250; J2405; J3010

== ENCOUNTER → 2019-03-15 | Outpatient (CLI) | payer OTHER ==
[~2019-03-15] MED LIST changes: -LR 1,000 ML IV ONE; -OMEP1CAP73 PO; +OMEP20CA4 PO; -ZONI100C17 PO; +ZONI100C2 PO; -ZONI25CA13 PO; +ZONI25CA2 PO; -ceFAZolin SOD 1 GM in D5W MINI-BAG PLUS 50 ML IV ONE
--- NOTE | 2019-03-16 00:45 | REP ---
Clinical: Left lower quadrant pain . Technique: Transabdominal pelvic ultrasound followed by transvaginal examination for better evaluation of the endometrium and adnexa with color Doppler evaluation of the ovaries. Findings: Bladder is unremarkable and measures 8.5 x 7.6 x 4.8 cm . Evidence of prior hysterectomy. No pelvic mass or free fluid noted. Bilateral ovaries are normal in appearance and vascularity without evidence for torsion. Right ovary measures 2.6 x 1.5 x 2.6 cm with 1.2 cm follicle ; R I = 0.46 . Left ovary measures 2.2 x 2.1 x 1.7 cm ; R I = 0.73 . Impression: 1. Prior hysterectomy. 2. Normal bilateral ovaries. 3. No obvious abnormality. Electronically Signed by Nash Zee MD 03/16/2019 12:37 A
== END ==
LOC: M RAD 08:24
PROVIDERS: ATTEND Nurse Practitioner Women's Health
DX: R10.32 Left lower quadrant pain (principal); Z90.710 Acquired absence of both cervix and uterus

== ENCOUNTER → 2019-03-30 | Outpatient (CLI) | payer OTHER ==
[~2019-03-30] MED LIST changes: +PROHANCE 279.3MG/ML 15ML VIAL (A9576) As Ordered ONE
--- NOTE | 2019-03-31 10:14 | REP ---
MRI ABDOMEN WITH AND WITHOUT CONTRAST: HISTORY: Enhancing lesion on CTA 01/18/2019. TECHNIQUE: Multiple sequences obtained in the axial and coronal planes prior to and following the intravenous administration of 14 mL ProHance. In the right lobe of the liver posteriorly and inferiorly there is subtle hyperintense signal on T2-weighted images with hypointensity on T1. There is a lesion at this location which enhances in the arterial phase of contrast administration. The lesion is somewhat lobulated. There is peripheral enhancement on the arterial phase images with relatively rapid washout, but a persistent enhancing blush on the delayed phases of imaging within the lesion. The lesion measures 1.8 x 1.4 cm. This is unchanged since the prior CT of 01/18/2019. No other liver lesion is seen. The gallbladder demonstrates multiple innumerable subcentimeter stones. There is no gallbladder wall edema. There is no evidence of intrahepatic or extrahepatic biliary dilatation. Common bile duct has a maximum diameter of approximately 6 mm. Spleen is normal in size with no intrinsic abnormality. Adrenal glands are normal. Pancreas demonstrates no mass. There is no pancreatic duct dilatation. The kidneys appears normal with no hydronephrosis. I see no adenopathy or free fluid in the visualized abdomen. IMPRESSION: Liver lesion in the posterior segment of the right lobe inferiorly. This enhances in the arterial phase of intravenous contrast administration as discussed above with subsequent washout, but a persistent blush within the lesion. It measures 1.8 x 1.4 cm and is unchanged since the prior CT of 01/18/2019. Lesion is nonspecific. 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 However, differential diagnostic possibilities which would be considered less likely would include a metastatic lesion, hepatocellular carcinoma and focal nodular hyperplasia. Clinical correlation is necessary. It is reassuring that the lesion has remained stable for 2 months. I would recommend followup MRI in 6 months if no intervention is planned. Also noted are multiple subcentimeter gallstones in the gallbladder without gallbladder wall edema or biliary dilatation. Electronically Signed by Mark Smith MD 03/31/2019 11:29 A
== END ==
LOC: M RAD 16:42
PROVIDERS: ATTEND Internal Medicine Gastroenterology
DX: R93.3 Abnormal findings on diagnostic imaging of other parts of digestive tract (principal)
CPT/HCPCS: 74183; A9576

== ENCOUNTER → 2019-05-29 | Outpatient (CLI) | payer OTHER ==
[~2019-05-29] MED LIST changes: +OMEP-172 PO; -OMEP20CA4 PO; -PROHANCE 279.3MG/ML 15ML VIAL (A9576) As Ordered ONE
[2019-05-29 12:43] LABS: HEMATOCRIT 44.2 % (36.0-47.0)
[2019-05-29 12:48] LABS: BASO % 0.6 % (0.0-1.0); EOS # 0.1 10^3/uL (0.0-0.5); HEMATOCRIT 45.8 % (36.0-47.0); HEMOGLOBIN 14.7 g/dl (12.0-15.5); LYMPH # 2.8 10^3/uL (1.5-5.0); LYMPH % 42.9 % (24.0-44.0); MEAN CORPUSCULAR HEMOGLOBIN 28.2 pg (27.0-33.0); MEAN CORPUSCULAR HGB CONC 32.1 g/dl (32.0-36.5); MEAN CORPUSCULAR VOLUME 87.7 fl (80.0-96.0); MONO # 0.5 10^3/uL (0.0-0.8); MONO % 7.4 % (0.0-5.0); NEUTROPHILS % 46.8 % (36.0-66.0); PLATELET COUNT, AUTOMATED 248 10^3/uL (150-450); RED BLOOD COUNT 5.22 10^6/uL (4.00-5.40); WHITE BLOOD COUNT 6.5 10^3/uL (4.0-10.0)
[2019-05-29 13:57] LABS: ALBUMIN 4.2 GM/DL (3.2-5.2); ALT/SGPT 21 U/L (12-78); BILIRUBIN,TOTAL 0.7 MG/DL (0.2-1.0); BLOOD UREA NITROGEN 14 MG/DL (7-18); CALCIUM LEVEL 9.4 MG/DL (8.5-10.1); CARBON DIOXIDE LEVEL 27 MEQ/L (21-32); CHLORIDE LEVEL 104 MEQ/L (98-107); FERRITIN 136 NG/ML (8-252); GLOMERULAR FILTRATION RATE > 60.0 (>60); GLUCOSE, FASTING 82 MG/DL (70-100); IRON (FE) 89 UG/DL (50-170); MAGNESIUM LEVEL 2.1 MG/DL (1.8-2.4); PERCENT SATURATION 28.8 % (13.2-45.0); PHOSPHORUS LEVEL 4.4 MG/DL (2.5-4.9); POTASSIUM SERUM 4.5 MEQ/L (3.5-5.1); SODIUM LEVEL 139 MEQ/L (136-145); TOTAL IRON BINDING CAPACITY 309 UG/DL (250-450); TOTAL PROTEIN 7.6 GM/DL (6.4-8.2)
[2019-05-29 14:46] LABS: HEMOGLOBIN A1c 5.1 %
[2019-05-29 15:23] LABS: TOTAL 25(OH) VITAMIN D 51.4 NG/ML (30.0-100.0)
[2019-05-29 15:24] LABS: VITAMIN B12 LEVEL 949 PG/ML (247-911)
== END ==
LOC: M LAB 11:29
PROVIDERS: ATTEND Physician Assistant
DX: K91.2 Postsurgical malabsorption, not elsewhere classified (principal); E55.9 Vitamin D deficiency, unspecified; Z98.84 Bariatric surgery status

== ENCOUNTER → 2019-10-05 | Outpatient (CLI) | payer OTHER ==
[~2019-10-05] MED LIST changes: -OMEP-172 PO; +OMEP1CAP73 PO; +PROHANCE 279.3MG/ML 15ML VIAL As Ordered ONE; +ZONI100C17 PO; -ZONI100C2 PO; +ZONI25CA13 PO; -ZONI25CA2 PO
--- NOTE | 2019-10-05 14:04 | REP ---
MRI LIVER WITH AND WITHOUT CONTRAST: COMPARISON: 03/30/2019 Multiple sequences obtained in the axial and coronal planes prior to and following the intravenous administration of 15 mL ProHance. Once again, in the posterior segment of the right lower lobe of the liver somewhat inferiorly, there is an enhancing nodule with heterogeneity. Thi sis best seen on the arterial phase of postcontrast imaging. It measures 1.8 x 1.4 cm and is unchanged. There is possible central enhancing scar. It is vaguely seen on the precontrast images. No other liver lesion is seen. Multiple innumerable gall stones are again seen in the gallbladder without evidence of gallbladder wall edema. There is no biliary dilatation. Spleen is normal in size with no intrinsic abnormality. The adrenal glands, pancreas and kidneys appear normal. There is no adenopathy or free fluid. IMPRESSION: Stable liver lesion posterior segment right lobe somewhat inferiorly. It is best seen on arterial phase of postcontrast imaging. It measures 1.8 x 1.4 cm. This is probably benign. There is possible central enhancing scar. Differential diagnosis would include focal nodular hyperplasia, hepatic adenoma and atypical hemangioma. Recommend followup MRI in 6 months. Electronically Signed by Mark Smith MD 10/05/2019 02:17 P
== END ==
LOC: M RAD 11:01
PROVIDERS: ATTEND Internal Medicine Gastroenterology
DX: R93.3 Abnormal findings on diagnostic imaging of other parts of digestive tract (principal); D37.6 Neoplasm of uncertain behavior of liver, gallbladder and bile ducts
CPT/HCPCS: 74183; A9576

== ENCOUNTER → 2019-11-01 | Outpatient (CLI) | payer OTHER ==
[~2019-11-01] MED LIST changes: -PROHANCE 279.3MG/ML 15ML VIAL As Ordered ONE
== END ==
LOC: M LABSMTC 10:01
PROVIDERS: ATTEND Pediatrics
DX: Z11.59 Encounter for screening for other viral diseases (principal)

== ENCOUNTER → 2019-11-30 | Outpatient (CLI) | payer OTHER ==
[2019-11-30 08:24] LABS: BASO # 0.1 10^3/uL (0.0-0.2); BASO % 0.9 % (0.0-1.0); EOS # 0.1 10^3/uL (0.0-0.5); EOS % 2.6 % (0.0-3.0); HEMATOCRIT 42.4 % (36.0-47.0); HEMOGLOBIN 13.6 g/dl (12.0-15.5); LYMPH # 2.8 10^3/uL (1.5-5.0); LYMPH % 51.4 % (24.0-44.0); MEAN CORPUSCULAR HEMOGLOBIN 28.1 pg (27.0-33.0); MEAN CORPUSCULAR HGB CONC 32.1 g/dl (32.0-36.5); MEAN CORPUSCULAR VOLUME 87.6 fl (80.0-96.0); MONO # 0.5 10^3/uL (0.0-0.8); NEUTROPHILS % 35.9 % (36.0-66.0); PLATELET COUNT, AUTOMATED 235 10^3/uL (150-450); RED BLOOD COUNT 4.84 10^6/uL (4.00-5.40); WHITE BLOOD COUNT 5.5 10^3/uL (4.0-10.0)
[2019-11-30 08:56] LABS: ALBUMIN 3.8 GM/DL (3.2-5.2); ALT/SGPT 26 U/L (12-78); BILIRUBIN,TOTAL 0.6 MG/DL (0.2-1.0); BLOOD UREA NITROGEN 11 MG/DL (7-18); CALCIUM LEVEL 9.6 MG/DL (8.5-10.1); CARBON DIOXIDE LEVEL 30 MEQ/L (21-32); CHLORIDE LEVEL 105 MEQ/L (98-107); FERRITIN 133 NG/ML (8-252); GLOMERULAR FILTRATION RATE > 60.0 (>58); GLUCOSE, FASTING 88 MG/DL (70-100); IRON (FE) 79 UG/DL (50-170); MAGNESIUM LEVEL 2.1 MG/DL (1.8-2.4); PERCENT SATURATION 28.7 % (13.2-45.0); PHOSPHORUS LEVEL 4.1 MG/DL (2.5-4.9); POTASSIUM SERUM 4.4 MEQ/L (3.5-5.1); SODIUM LEVEL 141 MEQ/L (136-145); TOTAL IRON BINDING CAPACITY 275 UG/DL (250-450); TOTAL PROTEIN 7.1 GM/DL (6.4-8.2)
[2019-11-30 10:05] LABS: HEMOGLOBIN A1c 4.9 %
[2019-11-30 11:19] LABS: TOTAL 25(OH) VITAMIN D 55.7 NG/ML (30.0-100.0); VITAMIN B12 LEVEL 1523 PG/ML (247-911)
== END ==
LOC: M LAB 07:47
PROVIDERS: ATTEND Physician Assistant
DX: K91.2 Postsurgical malabsorption, not elsewhere classified (principal); Z98.84 Bariatric surgery status; E55.9 Vitamin D deficiency, unspecified; Z86.39 Personal history of other endocrine, nutritional and metabolic disease

== ENCOUNTER → 2020-03-18 | Outpatient (CLI) | payer OTHER ==
--- NOTE | 2020-03-18 09:16 | REPMRS ---
Patient History The patient states she had a clinical breast exam in October 2019. Family history of breast cancer in maternal grandmother, breast cancer in maternal grandmother, prostate cancer in paternal grandfather, unknown cancer in paternal cousin. Reductions of both breasts, February 28, 2019. 3D TOMOSYNTHESIS WAS PERFORMED. [facility] for [facility] 16.[facility]%. VOLPARA DENSITY B. Digital Woman Screen Mammo: March 18, 2020 - Exam #: [id number] Bilateral CC and MLO view(s) were taken. Technologist: Dora Killian, Technologist Prior study comparison: January 18, 2019, bilateral digital mammo screening bilat, performed at [facility]. FINDINGS: There are scattered fibroglandular densities. There has been no change in the appearance of the mammogram from the prior studies. There is a mild amount of residual fibroglandular tissue which is fairly symmetric. There is no interval development of dominant mass, architectural distortion, or clustered microcalcification suggestive of malignancy. Assessment: BI-RADS/ACR category 1 mammogram. Negative Mammogram. Recommendation Routine screening mammogram in 1 year (for women over age 40). This mammogram was interpreted with the aid of an FDA-approved computer-aided dectection system. Electronically Signed By: Mark Smith MD 03/18/20 [id number]
== END ==
LOC: M WHC 08:37
PROVIDERS: ATTEND Nurse Practitioner Women's Health
DX: Z12.31 Encounter for screening mammogram for malignant neoplasm of breast (principal)

== ENCOUNTER → 2020-06-10 | Outpatient (CLI) | payer OTHER ==
[~2020-06-10] MED LIST changes: +PROHANCE 279.3MG/ML 15ML VIAL As Ordered ONE
--- NOTE | 2020-06-10 18:11 | REP ---
INDICATION: LIVER DISEASE. COMPARISON: MRI 10/05/2019 and 03/30/2019. TECHNIQUE: Multiple sequences obtained in the axial and coronal planes prior to and following the intravenous administration of 15 mL ProHance. FINDINGS: The liver is not significantly enlarged. There is no significant fatty infiltration. Once again in the inferior right lobe of the liver there is a relatively ill-defined non encapsulated enhancing nodule, best seen in the arterial phase of imaging. Approximate measurements are 3.0 x 2.1 cm. On the initial MRI of 03/30/2019 approximate measurements were 18 x 15 mm. On these arterial phase images there appears to be a central nonenhancing subcentimeter area which demonstrates delayed enhancement, most compatible with a central scar. Eleven portion appears to be hyperintense on T2 weighted images. There is a mild persistent delayed blush of enhancement at that central location. Once again, the area demonstrates slight T2 hyperintensity and T1 hypointensity. No new liver lesion is seen. The spleen is normal in size. The adrenal glands are normal. Pancreas and kidneys are unremarkable. No adenopathy or free fluid is seen. There are again multiple innumerable gallstones in the gallbladder with no gallbladder wall thickening and no evidence of biliary dilatation. IMPRESSION: The ill-defined non encapsulated enhancing liver nodule in the inferior right lobe as mildly increased in size since the initial exam 03/30/2019. In my opinion, the imaging characteristics are most compatible with focal nodular hyperplasia. This can increase in size over time. Continued clinical correlation and follow-up recommended. <Electronically signed by Mark Smith > 06/10/20 [id number]
== END ==
LOC: M RAD 15:31
PROVIDERS: ATTEND Internal Medicine Gastroenterology
DX: K76.9 Liver disease, unspecified (principal)
CPT/HCPCS: 74183; A9576

== ENCOUNTER → 2020-08-09 | Outpatient (CLI) | payer OTHER ==
[~2020-08-09] MED LIST changes: -PROHANCE 279.3MG/ML 15ML VIAL As Ordered ONE
[2020-08-09 08:19] LABS: BASO % 0.8 % (0.0-1.0); EOS # 0.1 10^3/uL (0.0-0.5); EOS % 2.6 % (0.0-3.0); HEMATOCRIT 37.7 % (36.0-47.0); HEMOGLOBIN 12.2 g/dl (12.0-15.5); LYMPH # 2.6 10^3/uL (1.5-5.0); LYMPH % 51.6 % (24.0-44.0); MEAN CORPUSCULAR HEMOGLOBIN 27.9 pg (27.0-33.0); MEAN CORPUSCULAR HGB CONC 32.4 g/dl (32.0-36.5); MEAN CORPUSCULAR VOLUME 86.1 fl (80.0-96.0); MONO # 0.4 10^3/uL (0.0-0.8); MONO % 8.5 % (2.0-8.0); NEUTROPHILS # 1.8 10^3/uL (1.5-8.5); NEUTROPHILS % 36.3 % (36.0-66.0); PLATELET COUNT, AUTOMATED 249 10^3/uL (150-450); RED BLOOD COUNT 4.38 10^6/uL (4.00-5.40)
[2020-08-09 08:51] LABS: ALBUMIN 3.8 GM/DL (3.2-5.2); ALT/SGPT 23 U/L (12-78); BILIRUBIN,DIRECT < 0.1 MG/DL (0.0-0.2); BILIRUBIN,TOTAL 0.5 MG/DL (0.2-1.0); TOTAL PROTEIN 6.7 GM/DL (6.4-8.2)
[2020-08-10 15:07] LABS: ANTI-MITOCHONDRIAL ANTIBODY 32.1 Units (0.0-20.0); ANTI-SMOOTH MUSCLE ANTIBODY 3 Units (0-19); ANTINUCLEAR ANTIBODIES DIRECT Negative (Negative); LIVER-KIDNEY MICROSOMAL ABY <20.1 Units (0.0-20.0)
== END ==
LOC: M LAB 07:26
PROVIDERS: ATTEND Internal Medicine Gastroenterology
DX: R93.3 Abnormal findings on diagnostic imaging of other parts of digestive tract (principal)

== ENCOUNTER → 2020-08-19 | Outpatient (CLI) | payer OTHER ==
[2020-08-19 09:13] LABS: INR 1.01; PROTHROMBIN TIME 13.5 SECONDS (12.5-14.3)
[2020-08-19 09:14] LABS: PARTIAL THROMBOPLASTIN TIME 28.8 SECONDS (24.2-38.5)
== END ==
LOC: M LAB 08:14
PROVIDERS: ATTEND Internal Medicine Gastroenterology
DX: K76.9 Liver disease, unspecified (principal); R93.3 Abnormal findings on diagnostic imaging of other parts of digestive tract

== ENCOUNTER → 2020-08-26 | Outpatient (CLI) | payer OTHER ==
[~2020-08-26] MED LIST changes: +BLAC1CAP2 PO; +HYDR-3363 PO; +LIDOCAINE 1% MDV 20ML VIAL As Ordered ONE; +MIRA3350 PO; +PLEC3TAB PO; +SODIUM BICARBONATE 8.4% INJ 50MEQ 50 ML VIAL As Ordered ONE; +TOPA1TAB PO
[2020-08-26 12:56] VITALS: BP 119/66
--- NOTE | 2020-08-26 15:18 | REP ---
INDICATION: LIVER DISEASE UNSPEC ABN FINDINGS IMAG. COMPARISON: Abdominal MRI with contrast dated 06/10/2020 TECHNIQUE: The procedure was performed by Meron Deutsch [facility], under the direct supervision of Dr. Gaston. The risks and benefits of the procedure were explained to the patient and an informed consent was obtained both verbally and written. Directly prior to the start of the procedure a formal time-out was completed in the procedure room. FINDINGS: The MRI demonstrated a ill-defined non encapsulated enhancing nodule that was best seen in the arterial phase of imaging in the right posterior lobe of the liver. It was requested that both the this mass and normal liver parenchyma be biopsied under ultrasound guidance. Unfortunately this mass is not visualized under ultrasound, therefore normal liver parenchyma was biopsied. Using ultrasound guidance the left lobe of the liver was localized. The skin was prepped and draped in a sterile fashion. Twenty mL of buffered lidocaine was used as a local anesthetic. Using ultrasound guidance a 19/20 gauge coaxial needle biopsy system was inserted and advanced into the left lobe of the liver. Four core biopsy specimens were obtained and sent to pathology for further analysis. The patient tolerated the procedure well and there were no immediate complications. After the appropriate amount of monitored convalescence the patient was discharged from the department. IMPRESSION: 1. Ultrasound-guided left lobe liver biopsy of normal liver parenchyma. The ill-defined mass visualized on MRI is not visualized by ultrasound. <Electronically signed by Meron Deutsch > 08/26/20 [id number] <Electronically signed by Chace Gaston > 08/26/20 [id number]
== END ==
LOC: M IRPRO 09:07
PROVIDERS: ATTEND Internal Medicine Gastroenterology
DX: D13.4 Benign neoplasm of liver (principal)

== ENCOUNTER → 2020-10-29 | Outpatient (CLI) | payer OTHER ==
[~2020-10-29] MED LIST changes: -LIDOCAINE 1% MDV 20ML VIAL As Ordered ONE; +PROHANCE 279.3MG/ML 15ML VIAL As Ordered ONE; -SODIUM BICARBONATE 8.4% INJ 50MEQ 50 ML VIAL As Ordered ONE
--- NOTE | 2020-10-29 14:14 | REPVR ---
PROCEDURE INFORMATION: Exam: MR Head Without and With Contrast; Internal Auditory Canals Exam date and time: 10/29/2020 8:10 AM Age: 39 years old Clinical indication: Other: Hearing loss, R/O retrochochlear pathology TECHNIQUE: Imaging protocol: MR of the head without and with intravenous contrast. Exam focused on the internal auditory canals. Contrast material: PROHANCE; Contrast volume: 15 ml; Contrast route: INTRAVENOUS (IV); COMPARISON: No relevant prior studies available. FINDINGS: Brain: There is no extra-axial collection or intra-axial mass. Normal parenchymal signal is preserved. There is no diffusion restriction. There is no abnormal enhancement within the brain. Ventricles: No ventriculomegaly. Mastoid air cells: Unremarkable. No effusions. Internal auditory canals: The IAC's appear symmetric, without abnormal enhancement or mass. Bones/joints: Unremarkable. IMPRESSION: No structural abnormality identified. Electronically signed by: Xi Denis On 10/29/2020 14:14:16 PM
== END ==
LOC: M RAD 07:08
PROVIDERS: ATTEND Otolaryngology
DX: H90.41 Sensorineural hearing loss, unilateral, right ear, with unrestricted hearing on the contralateral side (principal)
CPT/HCPCS: 70553; A9576

== ENCOUNTER → 2020-11-04 | Outpatient (CLI) | payer OTHER ==
[~2020-11-04] MED LIST changes: +PROHANCE 279.3MG/ML 5ML VIAL As Ordered ONE
--- NOTE | 2020-11-04 10:55 | REP ---
INDICATION: ABNORMAL FINDINGS ON DX IMAGING OF PRT DIGESTIVE TRACT. COMPARISON: 06/10/2020. TECHNIQUE: Multiple sequences obtained in the axial, coronal planes prior to and following the intravenous administration of 16 mL ProHance. FINDINGS: In the inferior right lobe of the liver there is again noted an ill-defined, non encapsulated enhancing nodule. Again, this is best seen on arterial phase images. Approximate measurements are 2.7 x 2.1 cm essentially unchanged compared to the prior study. A central nonenhancing focus demonstrates delayed enhancement, suggesting an enhancing central scar. That focus is hyperintense on T2 weighted images. The entire lesion is mildly hyperintense on T2 weighted images. There is mild persistent ill-defined enhancement of the lesion on more delayed post-contrast images. No new liver mass is seen. Multiple subcentimeter gallstones are again seen in the gallbladder. There is no gallbladder wall thickening or edema. There is no biliary dilatation. Spleen, adrenals, pancreas and kidneys are unremarkable. There is no adenopathy or free fluid. IMPRESSION: Stable nodule right lobe of the liver demonstrating imaging characteristics most consistent with focal nodular hyperplasia. <Electronically signed by Mark Smith > 11/04/20 [id number]
== END ==
LOC: M RAD 08:54
PROVIDERS: ATTEND Internal Medicine Gastroenterology
DX: R93.3 Abnormal findings on diagnostic imaging of other parts of digestive tract (principal); D13.4 Benign neoplasm of liver
CPT/HCPCS: 74183; A9576

== ENCOUNTER → 2020-11-08 | Outpatient (CLI) | payer OTHER ==
[~2020-11-08] MED LIST changes: -PROHANCE 279.3MG/ML 5ML VIAL As Ordered ONE
--- NOTE | 2020-11-08 13:21 | REP ---
INDICATION: HIGH RISK FOR BREAST CA, DENSE BREAST TISSUE. COMPARISON: 03/18/2020 mammogram. TECHNIQUE: Three Jenni MRI imaging was performed with a dedicated breast coil. Axial, coronal, and sagittal T1 and T2 weighted scans were obtained with and without fat saturation in the usual fashion. The study includes dynamically acquired post gadolinium-enhanced imaging with image subtraction. Maximum intensity projection and multi planar reformation imaging is included as well. This study is interpreted with the aid of [employer], an FDA approved computer aided detection (CAD) software program, on a dedicated breast MRI workstation. The gadolinium enhancement dose is 15 mL of intravenous ProHance. FINDINGS: There is moderate fibroglandular tissue symmetrically bilaterally. 2 subcentimeter cystic structures seen laterally in the left breast. There is no evidence of significant axillary adenopathy bilaterally. There is mild diffuse background parenchymal enhancement. I see no suspicious enhancing mass or morphologic abnormality. IMPRESSION: BI-RADS category 2 benign bilateral breast MRI. No suspicious enhancing mass or morphologic abnormality. <Electronically signed by Mark Smith > 11/08/20 [id number]
== END ==
LOC: M RAD 10:38
PROVIDERS: ATTEND Nurse Practitioner Women's Health
DX: Z91.89 Other specified personal risk factors, not elsewhere classified (principal); Z80.3 Family history of malignant neoplasm of breast; R92.2 Inconclusive mammogram
CPT/HCPCS: 77049; A9576

== ENCOUNTER → 2020-12-31 | Outpatient (CLI) | payer OTHER ==
[~2020-12-31] MED LIST changes: -PROHANCE 279.3MG/ML 15ML VIAL As Ordered ONE
[2020-12-31 18:27] LABS: BASO % 0.5 % (0.0-1.0); EOS # 0.1 10^3/uL (0.0-0.5); EOS % 1.5 % (0.0-3.0); HEMATOCRIT 43.6 % (36.0-47.0); HEMOGLOBIN 14.4 g/dl (12.0-15.5); LYMPH # 3.7 10^3/uL (1.5-5.0); LYMPH % 45.9 % (24.0-44.0); MEAN CORPUSCULAR VOLUME 84.7 fl (80.0-96.0); MONO # 0.5 10^3/uL (0.0-0.8); MONO % 6.4 % (2.0-8.0); NEUTROPHILS # 3.7 10^3/uL (1.5-8.5); NEUTROPHILS % 45.6 % (36.0-66.0); PLATELET COUNT, AUTOMATED 247 10^3/uL (150-450); RED BLOOD COUNT 5.15 10^6/uL (4.00-5.40); WHITE BLOOD COUNT 8.1 10^3/uL (4.0-10.0)
[2020-12-31 18:58] LABS: ALBUMIN 4.2 GM/DL (3.2-5.2); ALT/SGPT 25 U/L (12-78); BILIRUBIN,TOTAL 0.5 MG/DL (0.2-1.0); BLOOD UREA NITROGEN 12 MG/DL (7-18); CALCIUM LEVEL 10.1 MG/DL (8.5-10.1); CARBON DIOXIDE LEVEL 31 MEQ/L (21-32); CHLORIDE LEVEL 102 MEQ/L (98-107); CREATININE FOR GFR 0.64 MG/DL (0.55-1.30); GLOMERULAR FILTRATION RATE > 60.0 (>58); GLUCOSE, FASTING 82 MG/DL (70-100); POTASSIUM SERUM 4.1 MEQ/L (3.5-5.1); SODIUM LEVEL 139 MEQ/L (136-145); TOTAL PROTEIN 7.5 GM/DL (6.4-8.2)
== END ==
LOC: M LAB 17:52
PROVIDERS: ATTEND Surgery
DX: Z01.818 Encounter for other preprocedural examination (principal)

== ENCOUNTER → 2021-03-12 | Outpatient (CLI) | payer OTHER ==
[2021-03-12 11:36] LABS: ALBUMIN 3.6 GM/DL (3.2-5.2); BILIRUBIN,DIRECT 0.1 MG/DL (0.0-0.2); BILIRUBIN,TOTAL 0.4 MG/DL (0.2-1.0); TOTAL PROTEIN 6.7 GM/DL (6.4-8.2)
== END ==
LOC: M WUC 08:34
PROVIDERS: ATTEND Internal Medicine Gastroenterology
DX: K76.9 Liver disease, unspecified (principal)

== ENCOUNTER → 2021-04-28 | Outpatient (CLI) | payer OTHER | LOC: M WHC 10:59 | PROVIDERS: ATTEND Nurse Practitioner Women's Health | DX: Z12.31 Encounter for screening mammogram for malignant neoplasm of breast (principal); Z91.89 Other specified personal risk factors, not elsewhere classified; Z80.3 Family history of malignant neoplasm of breast ==

== ENCOUNTER → 2021-11-23 | Outpatient (CLI) | payer OTHER ==
[~2021-11-23] MED LIST changes: +LEXA1TAB PO; +MULT-90 PO; +VITA100093 PO; -ZONI100C17 PO; +ZONI100C67 PO
== END ==
LOC: M LABSMTC 09:26
PROVIDERS: ATTEND Anesthesiology
DX: Z01.812 Encounter for preprocedural laboratory examination (principal); Z20.822 Contact with and (suspected) exposure to COVID-19

== ENCOUNTER 2021-11-27 07:46 | Day surgery (SDC) | payer OTHER ==
[~2021-11-27] VITALS: Ht 154.9 cm; Wt 91.7 kg
[~2021-11-27 07:46] MED LIST changes: +CelecoXIB (CeleBREX) 100 MG CAP PO ONE; +ceFAZolin SOD 2 GM in IV 1 EA IV ONE
[2021-11-27] MEDS ORDERED: LR 1,000 ML IV SCH ×2 (08:25→09:15)
[2021-11-27] MEDS ORDERED: HYDROMORPHONE HCL 0.5 MG/ 0.5 ML SYRINGE (J1170 PER 1) IV PRN (09:15)
[2021-11-27] MEDS ORDERED: ALBUTEROL SULFATE 2.5 MG/0.5 ML INH NEB SOLN INH PRN (09:15)
[2021-11-27] MEDS ORDERED: diphenhydrAMINE 50MG/ML VIAL (J1200) IV PRN (09:15)
[2021-11-27] MEDS ORDERED: oxyCODONE 5MG TAB PO PRN (09:15)
[2021-11-27] MEDS ORDERED: ONDANSETRON 4MG 2ML VIAL IV PRN (09:15)
[2021-11-27] MEDS ORDERED: METOCLOPRAMIDE INJ 10MG/2ML VIAL (J2765 PER 1) IV PRN (09:15)
[2021-11-27] MEDS ORDERED: fentaNYL 100 MCG/2 ML INJECTION IV PRN (09:15)
[2021-11-27] MEDS ORDERED: MEPERIDINE INJ 25 MG/ML VIAL (J2175) IV PRN (09:15)
[2021-11-27] MEDS ORDERED: ROCURONIUM BROMIDE 50 MG/5 ML VIAL As Ordered ONE ×2 (09:31→11:17)
[2021-11-27] MEDS ORDERED: BUPIVACAINE HCL 0.25% 30ML VIAL As Ordered ONE (09:31)
[2021-11-27] MEDS ORDERED: propofoL 200 MG/20 ML VIAL As Ordered ONE (09:31)
[2021-11-27] MEDS ORDERED: dexameTHASONE 4 MG/ML 1ML VIAL (J1100 PER 1MG) As Ordered ONE (09:31)
[2021-11-27] MEDS ORDERED: SUGAMMADEX SODIUM 500 MG/5 ML VIAL (BRIDION) As Ordered ONE (09:31)
[2021-11-27] MEDS ORDERED: MIDAZOLAM INJ 2MG/2ML VIAL (J2250 PER 1MG) As Ordered ONE (09:31)
[2021-11-27] MEDS ORDERED: ONDANSETRON 4MG 2ML VIAL As Ordered ONE (09:31)
[2021-11-27] MEDS ORDERED: LIDOCAINE 1% SDV 30ML VIAL As Ordered ONE (09:31)
[2021-11-27] MEDS ORDERED: fentaNYL 100 MCG/2 ML INJECTION As Ordered ONE (09:32)
[2021-11-27] MEDS ORDERED: LIDOCAINE 2% INJ 100 MG/5 ML SYRINGE As Ordered ONE (09:36)
[2021-11-27] MEDS ORDERED: ACETAMINOPHEN 1000MG 100ML IV BTL (OFIRMEV) (J0131 PER 10MG) As Ordered ONE (10:22)
[2021-11-27] MEDS ORDERED: GLYCOPYRROLATE INJ 0.2 MG/ML 2 ML VIAL As Ordered ONE (11:03)
[2021-11-27] MEDS ORDERED: KETOROLAC 60MG 2ML VIAL As Ordered ONE (11:38)
[2021-11-27] MEDS ORDERED: ALBUTEROL 6.7GM INHALER **FOR ANES. CART/OMNICELL ONLY As Ordered ONE (11:59)
[2021-11-27 12:55] VITALS: BP 100/58
[2021-11-27] MEDS ORDERED: PERCOCET 5MG/325MG TAB PO PRN ×2 (13:00)
[2021-11-27] MEDS ORDERED: KETOROLAC 30 MG/ML 1ML VIAL IV PRN (18:00)
== END 2021-11-27 14:04 | disposition home or self-care (01) ==
LOC: M SDC 07:46
PROVIDERS: ATTEND Surgery
DX: K40.90 Unilateral inguinal hernia, without obstruction or gangrene, not specified as recurrent (principal); D17.6 Benign lipomatous neoplasm of spermatic cord; Z87.891 Personal history of nicotine dependence; K57.92 Diverticulitis of intestine, part unspecified, without perforation or abscess without bleeding; K21.9 Gastro-esophageal reflux disease without esophagitis; J45.909 Unspecified asthma, uncomplicated; G43.909 Migraine, unspecified, not intractable, without status migrainosus; Z79.899 Other long term (current) drug therapy; Z79.51 Long term (current) use of inhaled steroids; F41.9 Anxiety disorder, unspecified; F32.A Depression, unspecified; Z88.5 Allergy status to narcotic agent
CPT/HCPCS: 49650; C1781; J0131; J0690; J1100; J1885; J2250; J2405; J3010; S2900

== ENCOUNTER → 2021-12-24 | Outpatient (CLI) | payer OTHER ==
[~2021-12-24] MED LIST changes: -CelecoXIB (CeleBREX) 100 MG CAP PO ONE; +E-Z-GAS II EFFERVESCENT PACKET (SODIUM BICARB./CITRIC ACID/SIMETHICONE) As Ordered ONE; +E-Z-HD 98% w/w 340GM SUSP BTL As Ordered ONE; +E-Z-PAQUE 96% w/w SUSP 176GM BTL As Ordered ONE; -ceFAZolin SOD 2 GM in IV 1 EA IV ONE
== END ==
LOC: M RAD 08:56
PROVIDERS: ATTEND Surgery
DX: K21.9 Gastro-esophageal reflux disease without esophagitis (principal); Z98.84 Bariatric surgery status

== ENCOUNTER → 2022-01-09 | Outpatient (CLI) | payer OTHER ==
[~2022-01-09] MED LIST changes: -E-Z-GAS II EFFERVESCENT PACKET (SODIUM BICARB./CITRIC ACID/SIMETHICONE) As Ordered ONE; -E-Z-HD 98% w/w 340GM SUSP BTL As Ordered ONE; -E-Z-PAQUE 96% w/w SUSP 176GM BTL As Ordered ONE; +PROHANCE 279.3MG/ML 15ML VIAL ONE; +PROHANCE 279.3MG/ML 5ML VIAL ONE
== END ==
LOC: M PLAIMG 08:52
PROVIDERS: ATTEND Internal Medicine Gastroenterology
DX: K76.89 Other specified diseases of liver (principal)
CPT/HCPCS: 74183; A9576

== ENCOUNTER → 2022-02-09 | Outpatient (CLI) | payer OTHER ==
[~2022-02-09] MED LIST changes: -PROHANCE 279.3MG/ML 15ML VIAL ONE; -PROHANCE 279.3MG/ML 5ML VIAL ONE
[2022-02-09 16:33] LABS: BASO % 0.6 % (0.0-1.0); EOS # 0.2 10^3/uL (0.0-0.5); EOS % 2.8 % (0.0-3.0); HEMATOCRIT 44.4 % (36.0-47.0); LYMPH # 2.9 10^3/uL (1.5-5.0); LYMPH % 45.9 % (24.0-44.0); MEAN CORPUSCULAR HEMOGLOBIN 27.9 pg (27.0-33.0); MEAN CORPUSCULAR HGB CONC 31.5 g/dl (32.0-36.5); MEAN CORPUSCULAR VOLUME 88.6 fl (80.0-96.0); MONO # 0.4 10^3/uL (0.0-0.8); MONO % 6.9 % (2.0-8.0); NEUTROPHILS # 2.8 10^3/uL (1.5-8.5); NEUTROPHILS % 43.6 % (36.0-66.0); PLATELET COUNT, AUTOMATED 235 10^3/uL (150-450); RED BLOOD COUNT 5.01 10^6/uL (4.00-5.40); WHITE BLOOD COUNT 6.4 10^3/uL (4.0-10.0)
[2022-02-09 17:23] LABS: ALBUMIN 3.8 GM/DL (3.2-5.2); ALT/SGPT 29 U/L (12-78); BILIRUBIN,TOTAL 0.3 MG/DL (0.2-1.0); BLOOD UREA NITROGEN 13 MG/DL (7-18); CALCIUM LEVEL 9.1 MG/DL (8.5-10.1); CARBON DIOXIDE LEVEL 28 MEQ/L (21-32); CHLORIDE LEVEL 106 MEQ/L (98-107); CREATININE FOR GFR 0.77 MG/DL (0.55-1.30); GLOMERULAR FILTRATION RATE > 60.0 (>58); GLUCOSE, FASTING 115 MG/DL (70-100); POTASSIUM SERUM 4.1 MEQ/L (3.5-5.1); SODIUM LEVEL 139 MEQ/L (136-145); THYROID STIMULATING HORMONE 0.725 uIU/ML (0.358-3.740)
== END ==
LOC: M WUC 13:35
PROVIDERS: ATTEND Physician Assistant
DX: R42 Dizziness and giddiness (principal); R53.83 Other fatigue

== ENCOUNTER → 2022-02-16 | Outpatient (CLI) | payer OTHER | LOC: M LABSMTC 10:59 | PROVIDERS: ATTEND Anesthesiology | DX: Z01.812 Encounter for preprocedural laboratory examination (principal); Z20.822 Contact with and (suspected) exposure to COVID-19 ==

== ENCOUNTER → 2022-03-16 | Outpatient (REF) | payer OTHER ==
[~2022-03-16] MED LIST changes: +LEVOTAB10 PO
== END ==
LOC: M LAB REF 14:37
PROVIDERS: ATTEND Surgery
DX: C76.51 Malignant neoplasm of right lower limb (principal)

== ENCOUNTER → 2022-04-30 | Outpatient (CLI) | payer OTHER | LOC: M LABSMTC 11:11 | PROVIDERS: ATTEND Anesthesiology | DX: Z01.812 Encounter for preprocedural laboratory examination (principal); Z11.52 Encounter for screening for COVID-19 ==

== ENCOUNTER 2022-05-05 12:31 | Day surgery (SDC) | payer OTHER ==
[~2022-05-05] VITALS: Ht 154.9 cm; Wt 98.4 kg
[~2022-05-05 12:31] MED LIST changes: +NS 1,000 ML IV ONE
[2022-05-05] MEDS ORDERED: propofoL 200 MG/20 ML VIAL As Ordered ONE (13:47)
[2022-05-05] MEDS ORDERED: fentaNYL 100 MCG/2 ML INJECTION As Ordered ONE (13:48)
[2022-05-05 15:05] VITALS: BP 134/84
== END 2022-05-05 15:06 | disposition home or self-care (01) ==
LOC: M OPP 12:31
PROVIDERS: ATTEND Internal Medicine Gastroenterology
DX: K29.70 Gastritis, unspecified, without bleeding (principal); Z79.51 Long term (current) use of inhaled steroids; Z79.899 Other long term (current) drug therapy; Z88.5 Allergy status to narcotic agent; G47.33 Obstructive sleep apnea (adult) (pediatric); F32.9 Major depressive disorder, single episode, unspecified; F41.9 Anxiety disorder, unspecified; G43.909 Migraine, unspecified, not intractable, without status migrainosus; Z98.84 Bariatric surgery status
CPT/HCPCS: 43239; 88305; 91035; J3010

== ENCOUNTER → 2022-06-16 | Outpatient (CLI) | payer OTHER ==
[~2022-06-16] MED LIST changes: -NS 1,000 ML IV ONE
[2022-06-16 13:27] LABS: BILIRUBIN,DIRECT 0.1 MG/DL (<0.4)
[2022-06-16 13:28] LABS: ALBUMIN 3.7 G/DL (3.2-5.2); BILIRUBIN,TOTAL 0.4 MG/DL (0.3-1.2); TOTAL PROTEIN 6.6 G/DL (5.7-8.2)
== END ==
LOC: M WUC 10:31
PROVIDERS: ATTEND Internal Medicine Gastroenterology
DX: C76.51 Malignant neoplasm of right lower limb (principal)

== ENCOUNTER 2022-06-27 19:47 | Emergency (ER) | payer OTHER ==
[~2022-06-27] VITALS: Ht 154.9 cm; Wt 95.5 kg
[2022-06-27 21:29] LABS: HEMATOCRIT 41.9 % (36.0-47.0); HEMOGLOBIN 13.8 g/dl (12.0-15.5); MEAN CORPUSCULAR HEMOGLOBIN 28.7 pg (27.0-33.0); MEAN CORPUSCULAR HGB CONC 32.9 g/dl (32.0-36.5); MEAN CORPUSCULAR VOLUME 87.1 fl (80.0-96.0); PLATELET COUNT, AUTOMATED 245 10^3/uL (150-450); RED BLOOD COUNT 4.81 10^6/uL (4.00-5.40); WHITE BLOOD COUNT 12.1 10^3/uL (4.0-10.0)
[2022-06-27 21:53] LABS: ALBUMIN 3.7 G/DL (3.2-5.2); ALKALINE PHOSPHATASE 99 U/L (46-116); ALT/SGPT 26 U/L (7.0-40); AST/SGOT 24 U/L (<34); BILIRUBIN,TOTAL 0.2 MG/DL (0.3-1.2); BLOOD UREA NITROGEN 18 MG/DL (9-23); CALCIUM LEVEL 9.4 MG/DL (8.5-10.1); CARBON DIOXIDE LEVEL 27 MMOL/L (20-31); CHLORIDE LEVEL 106 MMOL/L (98-107); CREATININE FOR GFR 0.81 MG/DL (0.55-1.30); GLOMERULAR FILTRATION RATE > 60.0 (>58); GLUCOSE, FASTING 110 MG/DL (60-100); SODIUM LEVEL 140 MMOL/L (136-145); TOTAL PROTEIN 6.6 G/DL (5.7-8.2)
[2022-06-27] MEDS ORDERED: ISOVUE-370 76% 100ML VIAL As Ordered ONE (22:05)
[2022-06-27 22:57] VITALS: BP 121/75
[2022-06-27] MEDS ORDERED: CIPR-249 PO (23:14)
[2022-06-28] MEDS ORDERED: CIPROFLOXACIN 500MG TABLET PO ONE
== END 2022-06-27 23:16 | disposition home or self-care (01) ==
LOC: M ED 19:47
DX: N39.0 Urinary tract infection, site not specified (principal); J45.909 Unspecified asthma, uncomplicated; K21.9 Gastro-esophageal reflux disease without esophagitis; F41.9 Anxiety disorder, unspecified; F32.A Depression, unspecified; G43.909 Migraine, unspecified, not intractable, without status migrainosus; Z98.84 Bariatric surgery status; Z88.5 Allergy status to narcotic agent; Z79.52 Long term (current) use of systemic steroids; Z79.810 Long term (current) use of selective estrogen receptor modulators (SERMs); Z79.899 Other long term (current) drug therapy

== ENCOUNTER → 2022-07-28 | Outpatient (CLI) | payer OTHER ==
[~2022-07-28] MED LIST changes: +CIPR-249 PO; +MONT-5 PO; -SING10TA32 PO
== END ==
LOC: M WHC 07:54
PROVIDERS: ATTEND Obstetrics & Gynecology
DX: Z12.31 Encounter for screening mammogram for malignant neoplasm of breast (principal)

== ENCOUNTER → 2022-08-10 | Outpatient (CLI) | payer OTHER ==
[2022-08-10 18:18] LABS: BASO % 0.5 % (0.0-1.0); EOS # 0.2 10^3/uL (0.0-0.5); EOS % 2.9 % (0.0-3.0); HEMATOCRIT 43.1 % (36.0-47.0); HEMOGLOBIN 13.6 g/dl (12.0-15.5); LYMPH # 2.6 10^3/uL (1.5-5.0); LYMPH % 42.2 % (24.0-44.0); MEAN CORPUSCULAR HEMOGLOBIN 28.5 pg (27.0-33.0); MEAN CORPUSCULAR HGB CONC 31.6 g/dl (32.0-36.5); MEAN CORPUSCULAR VOLUME 90.2 fl (80.0-96.0); MONO # 0.5 10^3/uL (0.0-0.8); MONO % 7.8 % (2.0-8.0); NEUTROPHILS # 2.9 10^3/uL (1.5-8.5); NEUTROPHILS % 46.4 % (36.0-66.0); PLATELET COUNT, AUTOMATED 246 10^3/uL (150-450); RED BLOOD COUNT 4.78 10^6/uL (4.00-5.40); WHITE BLOOD COUNT 6.2 10^3/uL (4.0-10.0)
[2022-08-10 18:20] LABS: HEMATOCRIT 43.4 % (36.0-47.0)
[2022-08-10 18:22] LABS: IRON (FE) 97 UG/DL (50-170)
[2022-08-10 18:23] LABS: ALKALINE PHOSPHATASE 75 U/L (46-116); ALT/SGPT 30 U/L (7.0-40); AST/SGOT 23 U/L (<34); BILIRUBIN,TOTAL 0.5 MG/DL (0.3-1.2); BLOOD UREA NITROGEN 15 MG/DL (9-23); CALCIUM LEVEL 9.3 MG/DL (8.5-10.1); CARBON DIOXIDE LEVEL 29 MMOL/L (20-31); CHLORIDE LEVEL 105 MMOL/L (98-107); CREATININE FOR GFR 0.63 MG/DL (0.55-1.30); GLOMERULAR FILTRATION RATE > 60.0 (>58); GLUCOSE, FASTING 83 MG/DL (60-100); MAGNESIUM LEVEL 2.1 MG/DL (1.8-2.4); PERCENT SATURATION 37.3 % (13.2-45.0); POTASSIUM SERUM 4.2 MMOL/L (3.5-5.1); SODIUM LEVEL 139 MMOL/L (136-145); TOTAL IRON BINDING CAPACITY 260 UG/DL (250-425); TOTAL PROTEIN 6.7 G/DL (5.7-8.2)
[2022-08-10 18:25] LABS: TOTAL 25(OH) VITAMIN D 52.5 NG/ML (20.0-100.0)
[2022-08-10 18:26] LABS: VITAMIN B12 LEVEL > 2000 PG/ML (211-911)
[2022-08-10 18:52] LABS: HEMOGLOBIN A1c 5.1 % (4.0-6.0)
== END ==
LOC: M WUC 14:03
PROVIDERS: ATTEND Surgery
DX: K91.2 Postsurgical malabsorption, not elsewhere classified (principal); E55.9 Vitamin D deficiency, unspecified; Z98.84 Bariatric surgery status

== ENCOUNTER → 2022-08-24 | Outpatient (REF) | payer OTHER | LOC: M SFHCDERM 14:39 | PROVIDERS: ATTEND Physician Assistant | DX: L81.4 Other melanin hyperpigmentation (principal) ==

== ENCOUNTER → 2022-08-27 | Outpatient (CLI) | payer OTHER ==
[2022-08-27 16:52] LABS: THYROID STIMULATING HORMONE 0.484 uIU/ML (0.55-4.78); THYROXINE (T4) 7.4 UG/DL (4.5-10.9)
[2022-08-27 16:53] LABS: T UPTAKE 38.7 % (22.5-37.0)
== END ==
LOC: M WUC 11:07
PROVIDERS: ATTEND Physician Assistant
DX: G47.00 Insomnia, unspecified (principal); Z68.36 Body mass index [BMI] 36.0-36.9, adult

== ENCOUNTER → 2022-10-30 | Outpatient (CLI) | payer OTHER ==
[2022-10-30 13:21] LABS: FREE T4 0.96 NG/DL (0.89-1.76); THYROID STIMULATING HORMONE 0.548 uIU/ML (0.55-4.78)
== END ==
LOC: M WUC 10:38
PROVIDERS: ATTEND Physician Assistant
DX: E05.90 Thyrotoxicosis, unspecified without thyrotoxic crisis or storm (principal); F90.2 Attention-deficit hyperactivity disorder, combined type

== ENCOUNTER → 2022-12-08 | Outpatient (CLI) | payer OTHER ==
[2022-12-08 18:27] LABS: HCG, SERUM QUANTITATIVE < 2.6 MIU/ML (<4.2)
[2022-12-08 18:31] LABS: THYROID STIMULATING HORMONE 0.566 uIU/ML (0.55-4.78)
[2022-12-08 18:32] LABS: LUTEINIZING HORMONE 55.5 mIU/ML
== END ==
LOC: M WUC 13:37
PROVIDERS: ATTEND Physician Assistant
DX: N91.2 Amenorrhea, unspecified (principal)

== ENCOUNTER → 2022-12-29 | Outpatient (CLI) | payer OTHER | LOC: M WUC 11:25 | PROVIDERS: ATTEND Physician Assistant | DX: M25.562 Pain in left knee (principal) ==

== ENCOUNTER → 2022-12-31 | Outpatient (CLI) | payer OTHER ==
[2022-12-31 17:18] LABS: BASO # 0.1 10^3/uL (0.0-0.2); BASO % 0.8 % (0.0-1.0); EOS # 0.1 10^3/uL (0.0-0.5); EOS % 1.8 % (0.0-3.0); HEMATOCRIT 40.4 % (36.0-47.0); HEMOGLOBIN 13.6 g/dl (12.0-15.5); LYMPH # 2.8 10^3/uL (1.5-5.0); LYMPH % 42.8 % (24.0-44.0); MEAN CORPUSCULAR HEMOGLOBIN 29.1 pg (27.0-33.0); MEAN CORPUSCULAR HGB CONC 33.7 g/dl (32.0-36.5); MEAN CORPUSCULAR VOLUME 86.3 fl (80.0-96.0); MONO # 0.5 10^3/uL (0.0-0.8); MONO % 7.4 % (2.0-8.0); NEUTROPHILS # 3.1 10^3/uL (1.5-8.5); NEUTROPHILS % 46.9 % (36.0-66.0); PLATELET COUNT, AUTOMATED 272 10^3/uL (150-450); RED BLOOD COUNT 4.68 10^6/uL (4.00-5.40); WHITE BLOOD COUNT 6.5 10^3/uL (4.0-10.0)
[2022-12-31 17:26] LABS: FERRITIN 69.7 NG/ML (7.3-270.7)
[2022-12-31 17:27] LABS: IRON (FE) 79 UG/DL (50-170); PERCENT SATURATION 27.8 % (13.2-45.0); TOTAL 25(OH) VITAMIN D 59.9 NG/ML (20.0-100.0); TOTAL IRON BINDING CAPACITY 284 UG/DL (250-425)
[2022-12-31 17:28] LABS: VITAMIN B12 LEVEL 969 PG/ML (211-911)
[2022-12-31 17:35] LABS: HEMATOCRIT 41.7 % (36.0-47.0)
[2022-12-31 18:51] LABS: ALBUMIN 3.9 G/DL (3.2-5.2); ALKALINE PHOSPHATASE 85 U/L (46-116); ALT/SGPT 23 U/L (7.0-40); AST/SGOT 19 U/L (<34); BILIRUBIN,TOTAL 0.5 MG/DL (0.3-1.2); BLOOD UREA NITROGEN 12 MG/DL (9-23); CALCIUM LEVEL 8.9 MG/DL (8.5-10.1); CARBON DIOXIDE LEVEL 27 MMOL/L (20-31); CHLORIDE LEVEL 107 MMOL/L (98-107); CREATININE FOR GFR 0.67 MG/DL (0.55-1.30); GLOMERULAR FILTRATION RATE > 60.0 (>58); GLUCOSE, FASTING 101 MG/DL (60-100); POTASSIUM SERUM 3.6 MMOL/L (3.5-5.1); SODIUM LEVEL 141 MMOL/L (136-145); TOTAL PROTEIN 6.5 G/DL (5.7-8.2)
[2023-01-01 09:54] LABS: MAGNESIUM LEVEL 1.8 MG/DL (1.8-2.4)
== END ==
LOC: M WUC 13:48
PROVIDERS: ATTEND Physician Assistant Surgical
DX: K91.2 Postsurgical malabsorption, not elsewhere classified (principal); Z98.84 Bariatric surgery status; E55.9 Vitamin D deficiency, unspecified; Z86.39 Personal history of other endocrine, nutritional and metabolic disease

== ENCOUNTER → 2023-01-01 | Outpatient (REF) | payer OTHER | LOC: M LAB REF 14:55 | PROVIDERS: ATTEND Surgery | DX: C43.9 Malignant melanoma of skin, unspecified (principal) ==

== ENCOUNTER → 2023-05-26 | Outpatient (CLI) | payer OTHER ==
[2023-05-26 09:33] LABS: ALBUMIN 3.8 G/DL (3.2-5.2); ALKALINE PHOSPHATASE 82 U/L (46-116); ALT/SGPT 24 U/L (7.0-40); AST/SGOT 22 U/L (<34); BILIRUBIN,TOTAL 0.5 MG/DL (0.3-1.2); BLOOD UREA NITROGEN 15 MG/DL (9-23); CALCIUM LEVEL 9.1 MG/DL (8.5-10.1); CARBON DIOXIDE LEVEL 30 MMOL/L (20-31); CHLORIDE LEVEL 105 MMOL/L (98-107); CREATININE FOR GFR 0.68 MG/DL (0.55-1.30); GLOMERULAR FILTRATION RATE > 60.0 (>58); GLUCOSE, FASTING 74 MG/DL (60-100); POTASSIUM SERUM 4.1 MMOL/L (3.5-5.1); SODIUM LEVEL 141 MMOL/L (136-145); TOTAL PROTEIN 6.5 G/DL (5.7-8.2)
== END ==
LOC: M LAB 08:35
PROVIDERS: ATTEND Student in an Organized Health Care Education/Training Program
DX: R10.13 Epigastric pain (principal); Z98.84 Bariatric surgery status

== ENCOUNTER → 2023-06-02 | Outpatient (CLI) | payer OTHER ==
[~2023-06-02] MED LIST changes: +GASTROGRAFIN SOLUTION 30ML ONE; +ISOVUE-370 76% 100ML VIAL ONE
== END ==
LOC: M PLAIMG 07:06
PROVIDERS: ATTEND Student in an Organized Health Care Education/Training Program
DX: R10.13 Epigastric pain (principal); Z98.84 Bariatric surgery status
CPT/HCPCS: 74177; Q9963; Q9967

== ENCOUNTER → 2023-06-16 | Outpatient (CLI) | payer OTHER ==
[~2023-06-16] MED LIST changes: -GASTROGRAFIN SOLUTION 30ML ONE; -ISOVUE-370 76% 100ML VIAL ONE
[2023-06-16 09:36] LABS: HEMATOCRIT 44.3 % (36.0-47.0)
[2023-06-16 09:39] LABS: BASO % 0.7 % (0.0-1.0); EOS # 0.2 10^3/uL (0.0-0.5); EOS % 3.7 % (0.0-3.0); HEMOGLOBIN 14.2 g/dl (12.0-15.5); LYMPH # 2.5 10^3/uL (1.5-5.0); MEAN CORPUSCULAR HEMOGLOBIN 28.1 pg (27.0-33.0); MEAN CORPUSCULAR HGB CONC 32.3 g/dl (32.0-36.5); MEAN CORPUSCULAR VOLUME 87.1 fl (80.0-96.0); MONO # 0.5 10^3/uL (0.0-0.8); MONO % 8.3 % (2.0-8.0); NEUTROPHILS # 2.4 10^3/uL (1.5-8.5); NEUTROPHILS % 43.1 % (36.0-66.0); PLATELET COUNT, AUTOMATED 268 10^3/uL (150-450); RED BLOOD COUNT 5.05 10^6/uL (4.00-5.40); WHITE BLOOD COUNT 5.6 10^3/uL (4.0-10.0)
[2023-06-16 10:06] LABS: IRON (FE) 117 UG/DL (50-170)
[2023-06-16 10:07] LABS: ALBUMIN 3.9 G/DL (3.2-5.2); ALKALINE PHOSPHATASE 88 U/L (46-116); ALT/SGPT 31 U/L (7.0-40); AST/SGOT 25 U/L (<34); BILIRUBIN,TOTAL 0.6 MG/DL (0.3-1.2); BLOOD UREA NITROGEN 13 MG/DL (9-23); CALCIUM LEVEL 9.5 MG/DL (8.5-10.1); CARBON DIOXIDE LEVEL 31 MMOL/L (20-31); CHLORIDE LEVEL 106 MMOL/L (98-107); CREATININE FOR GFR 0.73 MG/DL (0.55-1.30); GLOMERULAR FILTRATION RATE > 60.0 (>58); GLUCOSE, FASTING 89 MG/DL (60-100); PERCENT SATURATION 39.9 % (13.2-45.0); PHOSPHORUS LEVEL 4.4 MG/DL (2.5-4.9); POTASSIUM SERUM 4.1 MMOL/L (3.5-5.1); SODIUM LEVEL 142 MMOL/L (136-145); TOTAL IRON BINDING CAPACITY 293 UG/DL (250-425); TOTAL PROTEIN 6.8 G/DL (5.7-8.2)
[2023-06-16 10:08] LABS: FERRITIN 87.3 NG/ML (7.3-270.7)
[2023-06-16 10:09] LABS: TOTAL 25(OH) VITAMIN D 51.5 NG/ML (20.0-100.0)
[2023-06-16 10:13] LABS: VITAMIN B12 LEVEL 1944 PG/ML (211-911)
== END ==
LOC: M LAB 09:09
PROVIDERS: ATTEND Physician Assistant Surgical
DX: K91.2 Postsurgical malabsorption, not elsewhere classified (principal); E55.9 Vitamin D deficiency, unspecified; Z98.84 Bariatric surgery status; Z86.39 Personal history of other endocrine, nutritional and metabolic disease

== ENCOUNTER → 2023-08-18 | Outpatient (CLI) | payer OTHER | LOC: M WHC 13:24 | PROVIDERS: ATTEND Obstetrics & Gynecology | DX: Z12.31 Encounter for screening mammogram for malignant neoplasm of breast (principal) ==

== ENCOUNTER → 2023-10-27 | Outpatient (CLI) | payer OTHER ==
[~2023-10-27] MED LIST changes: +E-Z-GAS II EFFERVESCENT PACKET (SODIUM BICARB./CITRIC ACID/SIMETHICONE) As Ordered ONE; +E-Z-HD 98% w/w 340GM SUSP BTL As Ordered ONE; +E-Z-PAQUE 96% w/w SUSP 176GM BTL As Ordered ONE
== END ==
LOC: M RAD 09:41
PROVIDERS: ATTEND Physician Assistant Surgical
DX: Z98.84 Bariatric surgery status (principal); K21.9 Gastro-esophageal reflux disease without esophagitis; K91.2 Postsurgical malabsorption, not elsewhere classified; R10.13 Epigastric pain; K44.9 Diaphragmatic hernia without obstruction or gangrene

== ENCOUNTER → 2023-12-24 | Outpatient (CLI) | payer OTHER ==
[~2023-12-24] MED LIST changes: -E-Z-GAS II EFFERVESCENT PACKET (SODIUM BICARB./CITRIC ACID/SIMETHICONE) As Ordered ONE; -E-Z-HD 98% w/w 340GM SUSP BTL As Ordered ONE; -E-Z-PAQUE 96% w/w SUSP 176GM BTL As Ordered ONE
[2023-12-24 18:01] LABS: HEMATOCRIT 39.8 % (36.0-47.0); HEMOGLOBIN 12.6 g/dl (12.0-15.5); MEAN CORPUSCULAR HEMOGLOBIN 28.1 pg (27.0-33.0); MEAN CORPUSCULAR HGB CONC 31.7 g/dl (32.0-36.5); MEAN CORPUSCULAR VOLUME 88.6 fl (80.0-96.0); PLATELET COUNT, AUTOMATED 251 10^3/uL (150-450); RED BLOOD COUNT 4.49 10^6/uL (4.00-5.40); WHITE BLOOD COUNT 6.6 10^3/uL (4.0-10.0)
[2023-12-24 18:08] LABS: BLOOD UREA NITROGEN 13 MG/DL (9-23); CALCIUM LEVEL 8.8 MG/DL (8.5-10.1); CARBON DIOXIDE LEVEL 30 MMOL/L (20-31); CHLORIDE LEVEL 105 MMOL/L (98-107); CREATININE FOR GFR 0.66 MG/DL (0.55-1.30); GLOMERULAR FILTRATION RATE > 60.0 (>58); GLUCOSE, FASTING 83 MG/DL (60-100); POTASSIUM SERUM 4.1 MMOL/L (3.5-5.1); SODIUM LEVEL 139 MMOL/L (136-145)
== END ==
LOC: M WUC 13:46
PROVIDERS: ATTEND Plastic Surgery Surgery of the Hand
DX: M54.07 Panniculitis affecting regions of neck and back, lumbosacral region (principal)

== ENCOUNTER 2024-01-11 13:30 | Observation (INO) | payer OTHER ==
[~2024-01-11] VITALS: Ht 154.9 cm; Wt 76.6 kg
[~2024-01-11 13:30] MED LIST changes: +ESTR1TAB PO; +TRAZ-186 PO
[2024-01-11] MEDS: LR 1,000 ML IV SCH ×3 (14:30→21:50)
[2024-01-11] MEDS ORDERED: ONDANSETRON 4MG 2ML VIAL As Ordered ONE (15:00)
[2024-01-11] MEDS ORDERED: LIDOCAINE 2% 100MG/5ML SDV (FOR ANES.) As Ordered ONE (15:00)
[2024-01-11] MEDS ORDERED: ROCURONIUM BROMIDE 50MG/5ML VIAL As Ordered ONE (15:00)
[2024-01-11] MEDS ORDERED: propofoL 200 MG/20 ML VIAL As Ordered ONE (15:00)
[2024-01-11] MEDS ORDERED: SUGAMMADEX SODIUM 500 MG/5 ML VIAL (BRIDION) As Ordered ONE (15:00)
[2024-01-11] MEDS ORDERED: fentaNYL 250 MCG/5 ML INJECTION As Ordered ONE (15:00)
[2024-01-11] MEDS ORDERED: MIDAZOLAM INJ 2MG/2ML VIAL As Ordered ONE (15:01)
[2024-01-11] MEDS ORDERED: dexmedeTOMIDine (4MCG/ML)200MCG/50ML BTL (PRECEDEX) As Ordered ONE (15:01)
[2024-01-11] MEDS: ceFAZolin SOD 2 GM in IV 1 EA IV ONE (17:00)
[2024-01-11] MEDS ORDERED: ePHEDrine SULFATE 25 MG/5 ML(5MG/ML) SYRINGE As Ordered ONE (17:04)
[2024-01-11] MEDS: HEPARIN SOD (PORCINE) 5000UNITS/ML 1ML VIAL/SYRINGE SQ ONE (17:06)
[2024-01-11] MEDS: EPINEPHrine INJ 1 MG/ML 1ML AMP As Ordered ONE (17:20)
[2024-01-11] MEDS: LIDOCAINE 1% MDV 20ML VIAL As Ordered ONE (17:20)
[2024-01-11] MEDS ORDERED: LACRILUBE (AKWA TEARS) OPHTH OINT 3.5GM As Ordered ONE (18:04)
[2024-01-11] MEDS ORDERED: ACETAMINOPHEN 1000MG 100ML IV BAG As Ordered ONE (18:06)
[2024-01-11] MEDS ORDERED: METOCLOPRAMIDE INJ 10MG/2ML VIAL As Ordered ONE (19:12)
[2024-01-11] MEDS: GENTAMICIN SULF 80MG/2ML VIAL As Ordered ONE (19:20)
[2024-01-11] MEDS ORDERED: fentaNYL 100 MCG/2 ML INJECTION IV PRN (20:30)
[2024-01-11] MEDS ORDERED: ONDANSETRON 4MG 2ML VIAL IV PRN ×2 (20:30)
[2024-01-11] MEDS ORDERED: HYDROMORPHONE HCL 0.5 MG/ 0.5 ML SYRINGE IV PRN (20:30)
[2024-01-11] MEDS ORDERED: oxyCODONE 5MG TAB PO PRN (20:30)
[2024-01-11] MEDS ORDERED: PERCOCET 5MG/325MG TAB PO PRN (20:35)
[2024-01-11] MEDS ORDERED: MEPERIDINE 25 MG/ML 1ML VIAL As Ordered ONE (20:36)
[2024-01-11] MEDS: MEPERIDINE 25 MG/ML 1ML VIAL IV PRN (20:36)
[2024-01-11 21:45] VITALS: BP 108/71; TEMP 97.7; O2SAT 98
[2024-01-11 22:15] VITALS: BP 110/71; TEMP 97.9; O2SAT 97
[2024-01-11 22:50] VITALS: BP 119/78; TEMP 97.7; O2SAT 97
[2024-01-11] MEDS: traMADol 50 MG TAB PO PRN (23:07)
[2024-01-11] MEDS ORDERED: PANT20TA6 PO (23:40)
[2024-01-11] MEDS ORDERED: COLA100C5 PO (23:40)
[2024-01-11] MEDS ORDERED: LEXA1TAB2 PO (23:40)
[2024-01-11] MEDS ORDERED: FAMO40TA3 PO (23:40)
[2024-01-11] MEDS ORDERED: ALBU8.5H INH (23:40)
[2024-01-11] MEDS ORDERED: MIRA33506 PO (23:40)
[2024-01-11] MEDS ORDERED: FLINCHW2 PO (23:40)
[2024-01-11] MEDS ORDERED: STRA100C PO (23:40)
[2024-01-11] MEDS ORDERED: ELDE350C PO (23:40)
[2024-01-11] MEDS ORDERED: HOME MED LIST COMPLETE! XX SCH (23:45)
[2024-01-12] VITALS: BP 114/75; TEMP 97.9; O2SAT 96
[2024-01-12] MEDS: ceFAZolin SOD 2 GM in IV 1 EA IV SCH (00:10)
[2024-01-12 01:00] VITALS: BP 115/74; TEMP 97.7; O2SAT 97
[2024-01-12 02:00] VITALS: BP 114/72; TEMP 97.7; O2SAT 96
[2024-01-12 03:00] VITALS: BP 116/71; TEMP 97.7; O2SAT 97
[2024-01-12 07:14] VITALS: BP 132/82; TEMP 97.1; O2SAT 99
[2024-01-12] MEDS: CYANOCOBALAMIN 500 MCG TAB PO SCH (08:23)
[2024-01-12] MEDS: ESCITALOPRAM OXALATE 10 MG TAB (LEXAPRO) PO SCH (08:24)
[2024-01-12] MEDS: VITAMIN D 1,000 INTERNATIONAL UNITS TABLET PO SCH (08:24)
[2024-01-12] MEDS: ACETAMINOPHEN TAB 650MG DOSE (2X325MG) PO PRN (08:25)
[2024-01-12] MEDS ORDERED: TRAM50TA2 PO (11:35)
[2024-01-12 12:06] VITALS: BP 126/76; TEMP 97.6; O2SAT 98
== END 2024-01-12 15:55 | disposition home or self-care (01) ==
LOC: M SDC 13:30 → M MS5PR 13:31
PROVIDERS: ADMIT Plastic Surgery Surgery of the Hand; ATTEND Plastic Surgery Surgery of the Hand
DX: M79.3 Panniculitis, unspecified (principal); G43.909 Migraine, unspecified, not intractable, without status migrainosus; F41.9 Anxiety disorder, unspecified; F32.A Depression, unspecified; Z98.84 Bariatric surgery status; Z88.5 Allergy status to narcotic agent
CPT/HCPCS: 15830; 15847; 15879; 88300; 96365; 96366; C9290; J0131; J0171; J0665; J0690; J1100; J1580; J2175; J2250; J2405; J2765; J3010

== ENCOUNTER 2024-01-22 10:26 | Emergency (ER) | payer OTHER ==
[~2024-01-22] VITALS: Ht 154.9 cm; Wt 76.5 kg
[~2024-01-22 10:26] MED LIST changes: +ALBU8.5H INH; +COLA100C5 PO; +ELDE350C PO; +FAMO40TA3 PO; +FLINCHW2 PO; +LEXA1TAB2 PO; +MIRA33506 PO; +PANT20TA6 PO; +STRA100C PO; +TRAM50TA2 PO
[2024-01-22 11:24] LABS: BASO % 0.6 % (0.0-1.0); EOS # 0.1 10^3/uL (0.0-0.5); EOS % 2.2 % (0.0-3.0); HEMATOCRIT 37.3 % (36.0-47.0); HEMOGLOBIN 12.1 g/dl (12.0-15.5); LYMPH % 40.2 % (24.0-44.0); MEAN CORPUSCULAR HEMOGLOBIN 28.7 pg (27.0-33.0); MEAN CORPUSCULAR HGB CONC 32.4 g/dl (32.0-36.5); MEAN CORPUSCULAR VOLUME 88.6 fl (80.0-96.0); MONO # 0.5 10^3/uL (0.0-0.8); NEUTROPHILS # 2.4 10^3/uL (1.5-8.5); NEUTROPHILS % 47.6 % (36.0-66.0); PLATELET COUNT, AUTOMATED 285 10^3/uL (150-450); RED BLOOD COUNT 4.21 10^6/uL (4.00-5.40)
[2024-01-22] MEDS ORDERED: AMOX875T2 PO (12:11)
[2024-01-22 12:12] VITALS: BP 116/77; TEMP 97.8; O2SAT 99
[2024-01-24] MEDS ORDERED: DOXY100C82 PO (14:28)
== END 2024-01-22 12:19 | disposition home or self-care (01) ==
LOC: M ED 10:26
DX: L76.34 Postprocedural seroma of skin and subcutaneous tissue following other procedure (principal); Z87.2 Personal history of diseases of the skin and subcutaneous tissue; Z79.52 Long term (current) use of systemic steroids; Z79.2 Long term (current) use of antibiotics; Z79.899 Other long term (current) drug therapy

== ENCOUNTER → 2024-06-13 | Outpatient (CLI) | payer OTHER ==
[~2024-06-13] MED LIST changes: -ALIG4CAP PO; +ALIG4CAP3 PO; +AMOX875T2 PO; +DOXY100C82 PO
[2024-06-13 10:19] LABS: HEMOGLOBIN 13.2 g/dl (12.0-15.5); MEAN CORPUSCULAR VOLUME 84.7 fl (80.0-96.0); PLATELET COUNT, AUTOMATED 235 10^3/uL (150-450); RED BLOOD COUNT 4.72 10^6/uL (4.00-5.40); WHITE BLOOD COUNT 6.1 10^3/uL (4.0-10.0)
[2024-06-13 10:33] LABS: ALBUMIN 3.6 G/DL (3.2-5.2); ALKALINE PHOSPHATASE 75 U/L (35-104); ALT/SGPT 26 U/L (7.0-40); AST/SGOT 19 U/L (<34); BILIRUBIN,TOTAL 0.6 MG/DL (0.3-1.2); BLOOD UREA NITROGEN 16 MG/DL (9-23); CALCIUM LEVEL 9.6 MG/DL (8.5-10.1); CARBON DIOXIDE LEVEL 31 MMOL/L (20-31); CHLORIDE LEVEL 105 MMOL/L (98-107); GLOMERULAR FILTRATION RATE > 60.0 (>58); GLUCOSE, FASTING 81 MG/DL (60-100); IRON (FE) 135 UG/DL (50-170); MAGNESIUM LEVEL 1.9 MG/DL (1.8-2.4); PERCENT SATURATION 47.9 % (13.2-45.0); PHOSPHORUS LEVEL 4.2 MG/DL (2.5-4.9); SODIUM LEVEL 142 MMOL/L (136-145); TOTAL IRON BINDING CAPACITY 282 UG/DL (250-425); TOTAL PROTEIN 6.7 G/DL (5.7-8.2)
[2024-06-13 10:35] LABS: FERRITIN 60.8 NG/ML (7.3-270.7)
[2024-06-13 10:36] LABS: FOLATE > 24.00 NG/ML (>5.4); TOTAL 25(OH) VITAMIN D 56.9 NG/ML (20.0-100.0)
[2024-06-13 10:42] LABS: HEMOGLOBIN A1c 5.2 % (4.0-6.0)
[2024-06-13 10:52] LABS: VITAMIN B12 LEVEL 658 PG/ML (211-911)
== END ==
LOC: M WUC 08:37
PROVIDERS: ATTEND Physician Assistant Surgical
DX: K91.2 Postsurgical malabsorption, not elsewhere classified (principal); Z86.39 Personal history of other endocrine, nutritional and metabolic disease

== ENCOUNTER → 2024-06-27 | Outpatient (CLI) | payer OTHER ==
[2024-06-27 14:12] LABS: HEMATOCRIT 39.3 % (36.0-47.0); HEMOGLOBIN 12.9 g/dl (12.0-15.5); MEAN CORPUSCULAR HEMOGLOBIN 28.4 pg (27.0-33.0); MEAN CORPUSCULAR HGB CONC 32.8 g/dl (32.0-36.5); MEAN CORPUSCULAR VOLUME 86.6 fl (80.0-96.0); PLATELET COUNT, AUTOMATED 219 10^3/uL (150-450); RED BLOOD COUNT 4.54 10^6/uL (4.00-5.40); WHITE BLOOD COUNT 6.1 10^3/uL (4.0-10.0)
[2024-06-27 14:38] LABS: ALBUMIN 3.5 G/DL (3.2-5.2); ALKALINE PHOSPHATASE 73 U/L (35-104); ALT/SGPT 23 U/L (7.0-40); AST/SGOT 19 U/L (<34); BILIRUBIN,TOTAL 0.3 MG/DL (0.3-1.2); BLOOD UREA NITROGEN 16 MG/DL (9-23); CALCIUM LEVEL 8.7 MG/DL (8.5-10.1); CARBON DIOXIDE LEVEL 30 MMOL/L (20-31); CHLORIDE LEVEL 106 MMOL/L (98-107); CREATININE FOR GFR 0.65 MG/DL (0.55-1.30); GLOMERULAR FILTRATION RATE > 60.0 (>58); GLUCOSE, FASTING 69 MG/DL (60-100); SODIUM LEVEL 142 MMOL/L (136-145); THYROID STIMULATING HORMONE 0.734 uIU/ML (0.55-4.78); TOTAL PROTEIN 6.4 G/DL (5.7-8.2)
== END ==
LOC: M LAB 12:44
PROVIDERS: ATTEND Physician Assistant Surgical
DX: Z01.812 Encounter for preprocedural laboratory examination (principal); E66.01 Morbid (severe) obesity due to excess calories; Z86.39 Personal history of other endocrine, nutritional and metabolic disease; K21.9 Gastro-esophageal reflux disease without esophagitis; Z98.84 Bariatric surgery status

== ENCOUNTER → 2024-08-07 | Outpatient (CLI) | payer OTHER ==
[~2024-08-07] MED LIST changes: +DOXY-442 PO; -DOXY100C82 PO
[2024-08-07 15:17] LABS: HEMATOCRIT 41.1 % (36.0-47.0); HEMOGLOBIN 13.4 g/dl (12.0-15.5); MEAN CORPUSCULAR HEMOGLOBIN 28.6 pg (27.0-33.0); MEAN CORPUSCULAR HGB CONC 32.6 g/dl (32.0-36.5); MEAN CORPUSCULAR VOLUME 87.8 fl (80.0-96.0); PLATELET COUNT, AUTOMATED 261 10^3/uL (150-450); RED BLOOD COUNT 4.68 10^6/uL (4.00-5.40); WHITE BLOOD COUNT 6.1 10^3/uL (4.0-10.0)
[2024-08-07 15:50] LABS: ALBUMIN 3.7 G/DL (3.2-5.2); ALKALINE PHOSPHATASE 81 U/L (35-104); ALT/SGPT 22 U/L (7.0-40); AST/SGOT 18 U/L (<34); BILIRUBIN,TOTAL 0.3 MG/DL (0.3-1.2); BLOOD UREA NITROGEN 14 MG/DL (9-23); CALCIUM LEVEL 9.1 MG/DL (8.5-10.1); CARBON DIOXIDE LEVEL 30 MMOL/L (20-31); CHLORIDE LEVEL 106 MMOL/L (98-107); CREATININE FOR GFR 0.63 MG/DL (0.55-1.30); GLOMERULAR FILTRATION RATE > 60.0 (>58); GLUCOSE, FASTING 56 MG/DL (60-100); POTASSIUM SERUM 4.3 MMOL/L (3.5-5.1); SODIUM LEVEL 145 MMOL/L (136-145); TOTAL PROTEIN 6.7 G/DL (5.7-8.2)
== END ==
LOC: M LAB 14:18
PROVIDERS: ATTEND Physician Assistant Surgical
DX: Z01.818 Encounter for other preprocedural examination (principal); Z98.84 Bariatric surgery status; Z86.39 Personal history of other endocrine, nutritional and metabolic disease

== ENCOUNTER → 2024-08-29 | Outpatient (CLI) | payer OTHER | LOC: M WHC 13:43 | PROVIDERS: ATTEND Obstetrics & Gynecology | DX: Z12.31 Encounter for screening mammogram for malignant neoplasm of breast (principal) ==

== ENCOUNTER → 2024-10-12 | Outpatient (CLI) | payer OTHER ==
[2024-10-12 14:05] LABS: HEMATOCRIT 38.7 % (36.0-47.0); HEMOGLOBIN 12.6 g/dl (12.0-15.5); MEAN CORPUSCULAR HEMOGLOBIN 28.5 pg (27.0-33.0); MEAN CORPUSCULAR HGB CONC 32.6 g/dl (32.0-36.5); MEAN CORPUSCULAR VOLUME 87.6 fl (80.0-96.0); PLATELET COUNT, AUTOMATED 233 10^3/uL (150-450); RED BLOOD COUNT 4.42 10^6/uL (4.00-5.40)
[2024-10-12 14:29] LABS: ALBUMIN 3.5 G/DL (3.2-5.2); ALKALINE PHOSPHATASE 81 U/L (35-104); ALT/SGPT 25 U/L (7.0-40); AST/SGOT 22 U/L (<34); BILIRUBIN,TOTAL 0.4 MG/DL (0.3-1.2); BLOOD UREA NITROGEN 12 MG/DL (9-23); CALCIUM LEVEL 8.7 MG/DL (8.5-10.1); CARBON DIOXIDE LEVEL 30 MMOL/L (20-31); CHLORIDE LEVEL 104 MMOL/L (98-107); CREATININE FOR GFR 0.62 MG/DL (0.55-1.30); GLOMERULAR FILTRATION RATE > 90.0 (>58); GLUCOSE, FASTING 92 MG/DL (60-100); POTASSIUM SERUM 4.1 MMOL/L (3.5-5.1); SODIUM LEVEL 141 MMOL/L (136-145); TOTAL PROTEIN 6.3 G/DL (5.7-8.2)
[2024-10-13 13:58] LABS: WHITE BLOOD COUNT 6.1 10^3/uL (4.0-10.0)
== END ==
LOC: M WUC 11:33
PROVIDERS: ATTEND Physician Assistant
DX: R53.83 Other fatigue (principal); R74.01 Elevation of levels of liver transaminase levels

== ENCOUNTER → 2024-12-26 | Outpatient (CLI) | payer OTHER | LOC: M PLAIMG 09:05 | PROVIDERS: ATTEND Physician Assistant Medical | DX: K76.89 Other specified diseases of liver (principal); Z86.0101 Personal history of adenomatous and serrated colon polyps; R10.13 Epigastric pain; R94.5 Abnormal results of liver function studies; K21.9 Gastro-esophageal reflux disease without esophagitis; Z90.49 Acquired absence of other specified parts of digestive tract ==

== ENCOUNTER → 2025-02-05 | Outpatient (CLI) | payer OTHER | LOC: M RAD 09:12 | PROVIDERS: ATTEND Physician Assistant Medical | DX: R94.5 Abnormal results of liver function studies (principal); R10.13 Epigastric pain; K21.9 Gastro-esophageal reflux disease without esophagitis ==

== ENCOUNTER → 2025-03-29 | Outpatient (CLI) | payer OTHER ==
[2025-03-29 14:14] LABS: PLATELET COUNT, AUTOMATED 230 10^3/uL (150-450)
[2025-03-29 14:19] LABS: ALT/SGPT 59 U/L (7.0-40); AST/SGOT 87 U/L (<34); CALCIUM LEVEL 9.4 MG/DL (8.5-10.1); CARBON DIOXIDE LEVEL 30 MMOL/L (20-31); CHLORIDE LEVEL 102 MMOL/L (98-107); CREATININE FOR GFR 0.70 MG/DL (0.55-1.30); GLOMERULAR FILTRATION RATE > 90.0 (>58); MAGNESIUM LEVEL 1.8 MG/DL (1.8-2.4); POTASSIUM SERUM 4.2 MMOL/L (3.5-5.1); SODIUM LEVEL 140 MMOL/L (136-145)
== END ==
LOC: M PLAIMG 10:03
PROVIDERS: ATTEND Physician Assistant
DX: R42 Dizziness and giddiness (principal); R53.83 Other fatigue; M79.18 Myalgia, other site; R53.1 Weakness; R51.9 Headache, unspecified